=== PATIENT | male | born 1985 | race Caucasian/White ===

== ENCOUNTER 2024-06-20 09:17 | Emergency (ER) | payer OTHER, SELFPAY ==
[2024-06-20 09:25] VITALS: BP 148/89; PULSE 93; TEMP 36.7; O2SAT 98; BMI 33.1
--- NOTE | 2024-06-20 09:41 | PC.NURSE ---
PT STATES PYELONIDAL CYST HAS BEEN POPPING UP ON AND OFF FOR A FEW WEEKS. IT WOULD GO AWAY ON IT'S OWN AND THEN COME BACK. LAST FEW DAYS PAIN GETTING WORSE AND NOT GOING AWAY.
[2024-06-20] MEDS: KETOROLAC TROMETHAMINE 60 MG/2 ML VIAL IM (10:08)
[2024-06-20] MEDS: LIDOCAINE HCL 1% 100 MG/10 ML MDV INJ (10:58)
--- NOTE | 2024-06-20 11:37 | ED.SKABFB1 ---
HPI - Skin/Abscess/Foreign Bdy General Chief complaint: Skin/Abscess/Foreign Body Stated complaint: SKIN Time Seen by Provider: 06/20/24 09:44 Source: patient Mode of arrival: walk-in Limitations: no limitations History of Present Illness HPI narrative: Patient presented to us with a history of pilonidal cyst that was removed few years ago over the last 1 week the patient developed some pain in the area where he had the cyst before, he denies any fever chills or any nausea or vomiting with a normal appetite Related Data Previous Rx's ?Medication ?Instructions ?Recorded doxycycline hyclate 100 mg capsule 100 mg PO BID 7 days #14 caps 06/20/24 metronidazole 500 mg tablet 500 mg PO Q8H 7 days #21 tabs 06/20/24 Allergies Allergy/AdvReac Type Severity Reaction Status Date / Time amoxicillin Allergy Severe Hives Verified 06/20/24 09:24 Penicillins AdvReac Severe Hives Verified 06/20/24 09:24 Review of Systems ROS Status of ROS 10 or more systems reviewed and unremarkable except as noted in history and below PFSH PFSH Social History Little interest or pleasure in doing things: not at all Feeling down, depressed, or hopeless: not at all Exam Narrative Exam Narrative: Nurses notes and vital signs reviewed and patient is not hypoxic. Buttock area examination: The patient have a area of induration at the gluteal cleft with the scarring that is obvious from previous surgery there was no area of drainage and there is no redness with her there is induration of the skin, induration is around 2 to 3 cm oval in shape, there is a fluctuation just at the gluteal cleft General: Well-appearing and in no apparent distress. Skin: Warm, dry, no pallor noted. No rash. Head: Normocephalic, atraumatic. Neck: Supple, non-tender. Cardiovascular: Regular Rate and Rhythm without murmur, gallop or rub. Respiratory: No accessory muscle use or respiratory distress. Lungs are clear to auscultation, no wheezing, rales or rhonchi Chest Wall: no tenderness Back: No midline thoracic or lumbar vertebral tenderness. No CVA tenderness Musculoskeletal: normal ROM, no calf or popliteal tenderness, no lower extremity edema/swelling GI: Abdomen is soft, non-distended. Normal bowel sounds. No masses appreciated. No tenderness to palpation. No rebound, guarding, or rigidity noted. Neurological: A&O x4. No cranial nerve dysfunction observed. No truncal ataxia. Moves all extremities. Sensation intact. Psychiatric: Cooperative and interactive. Normal mood and affect. Constitutional Vital Signs, click to edit/add: Last Vital Signs Temp 98.1 F 06/20/24 09:25 Pulse 93 H 06/20/24 09:25 Resp 18 06/20/24 09:25 BP 148/89 H 06/20/24 09:25 Pulse Ox 98 06/20/24 09:25 O2 Del Method Room Air 06/20/24 09:25 Course Vital Signs Vital signs: Vital Signs Temperature 98.1 F 06/20/24 09:25 Pulse Rate 93 H 06/20/24 09:25 Respiratory Rate 18 06/20/24 09:25 Blood Pressure 148/89 H 06/20/24 09:25 Pulse Oximetry 98 06/20/24 09:25 Oxygen Delivery Method Room Air 06/20/24 09:25 Temperature 98.1 F 06/20/24 09:25 Pulse Rate 93 H 06/20/24 09:25 Respiratory Rate 18 06/20/24 09:25 Blood Pressure 148/89 H 06/20/24 09:25 Pulse Oximetry 98 06/20/24 09:25 Oxygen Delivery Method Room Air 06/20/24 09:25 MDM - Skin/Abscess/Foreign Bdy MDM Narrative Medical decision making narrative: Bedside drainage' After cleaning the area thoroughly with Betadine and infiltrated the area with 1% lidocaine. Almost 10 cc The patient had a large bore needle used to drain almost 20 cc of pus Small stab wound by 11 size blade with no further drainage noted after the pus was removed with a large bore needle Culture obtained and sent The patient was started on Flagyl and doxycycline discharged home with warm sitz bath instructed in addition to hydration monitoring for fever and pain and referred to general surgery as outpatient Discharge Plan Discharge Chief Complaint: Skin/Abscess/Foreign Body Clinical Impression: Pilonidal cyst with abscess Patient Disposition: Home, Self-Care Time of Disposition Decision: 10:47 Condition: Good Mode of Transportation: Private Vehicle Prescriptions / Home Meds: New doxycycline hyclate 100 mg capsule 100 mg PO BID 7 Days Qty: 14 0RF metronidazole 500 mg tablet 500 mg PO Q8H 7 Days Qty: 21 0RF Print Language: Gibraltarian Instructions: Pilonidal Cyst (ED), Abscess (ED), Sitz Bath (DC) Referrals: Howard Walker DO [Primary Care Provider] - 1 week Discharge Date/Time: 06/20/24 11:00
== END 2024-06-20 11:00 | disposition home or self-care (01) ==
PROVIDERS: Emergency Provider Emergency Medicine; PCP Internal Medicine
DX: L05.01 Pilonidal cyst with abscess (principal)
CPT/HCPCS: 10160; 87070; 87075; 87150; 96372; 99284; J1885

== ENCOUNTER 2024-06-21 18:15 | Emergency (ER) | payer OTHER, SELFPAY ==
[2024-06-21 18:18] VITALS: BP 168/94; PULSE 101; TEMP 37.3; O2SAT 96; BMI 33.1
--- NOTE | 2024-06-21 18:30 | CT_ITS ---
The [address] [address] Patient Name: JESÚS LEAHY MRN: [id number] date: 1985 Sex: M Assigned Patient Location: ER Current Patient Location: [facility] Accession/Order Number: [id number] Exam Date: 06/21/2024 19:08 Report Date: 06/21/2024 19:42 At the request of: ABBI MONGE Procedure: CT pelvis w con Exam: Radiographs: XR chest 1V, CT pelvis w con Reason for exam: Cough, fever Comparison: None CT/CT pelvis w con IMPRESSION: Unremarkable chest x-ray. EXAM: CT scan of the pelvis using 100 mL of IV iodinated contrast. Dose reduction technique used: Automated exposure control and/or adjustment of the mA and/or kV according to patient size and/or use of iterative reconstruction technique. REASON FOR EXAM: Cough, fever, abscess drained yesterday COMPARISON: None FINDINGS: Small fluid collection along the upper gluteal cleft subcutaneous fat to the right midline measuring approximately 3.4 x 2.2 x 3.6 cm with mild surrounding fat stranding and a small internal locules of gas. Small fat-containing left inguinal hernia. Mild urothelial thickening of a short segment of the distal right ureter. Right lower quadrant fistula communication between small bowel and colon. Mild wall thickening of the distal ileum. No free fluid in the pelvis. No intrapelvic fluid collection or abscess. Remainder unremarkable. IMPRESSION: 1. Small abscess in the subcutaneous fat along the upper gluteal cleft. 2. Probable sequela of Crohn's disease with fistula between small bowel and colon in the right lower quadrant and wall thickening of the distal ileum. 3. Short segment wall thickening of the distal right ureter may be reactive to the adjacent changes of prior inflammation. Electronically authenticated by: CONCEPCION TRENT Date: 06/21/2024 19:42
--- NOTE | 2024-06-21 18:41 | ED.GENADUL1 ---
HPI HPI - General Adult General Chief complaint: Upper Respiratory Infection Stated complaint: FEVER, CHILLS, HEAD & EYE PRESSURE, SOB Time Seen by Provider: 06/21/24 18:18 Source: patient Mode of arrival: walk-in Limitations: no limitations History of Present Illness HPI narrative: 38-year-old male presents for fever and head pressure and cough. The symptoms began within the last day. Several days ago he had a pilonidal abscess incised and drained but he states that his pilonidal area feels better. He was concerned that his fever was related to the pilonidal cyst and abscess. No vomiting or diarrhea. He checked his temperature at home and it was 101.5 degrees today at home. Related Data Previous Rx's ?Medication ?Instructions ?Recorded doxycycline hyclate 100 mg capsule 100 mg PO BID 7 days #14 caps 06/20/24 metronidazole 500 mg tablet 500 mg PO Q8H 7 days #21 tabs 06/20/24 Allergies Allergy/AdvReac Type Severity Reaction Status Date / Time amoxicillin Allergy Severe Hives Verified 06/20/24 09:24 Penicillins AdvReac Severe Hives Verified 06/20/24 09:24 Opioid HPI Opioid Management Most Recent Opioid Data: Last Pain Scale 9 06/20/24 10:08 06/20/24 Review of Systems ROS Narrative A ten point review of systems is negative except as noted above. PFSH PFSH Social History Little interest or pleasure in doing things: not at all Feeling down, depressed, or hopeless: not at all Exam Narrative Exam Narrative: Nurses note and vital signs reviewed and patient is not hypoxic. General: The patient appears in no apparent distress. Patient is resting comfortably on cart. Skin: Warm, dry, no pallor noted. There is no rash noted. Head: Normocephalic, atraumatic Eye: Normal conjunctiva, no drainage Ears, Nose, Mouth, and Throat: oral mucosa is moist. Nares patent. No pharyngeal erythema. TMs are normal. Cardiovascular: Regular Rate and Rhythm Respiratory: Patient is in no distress, no accessory muscle use, lungs are clear to auscultation, no wheezing, rales or rhonchi Back: Pilonidal area has swelling and tenderness and some mild fluctuance GI: Soft and nontender Musculoskeletal: The patient has no evidence of calf tenderness, no pitting edema, symmetrical pulses noted bilaterally Neurological: Awake and alert Psychiatric: Cooperative Constitutional Vital Signs, click to edit/add: Last Vital Signs Temp 99.2 F 06/21/24 18:18 Pulse 101 H 06/21/24 18:18 Resp 18 06/21/24 18:18 BP 168/94 H 06/21/24 18:18 Pulse Ox 96 06/21/24 18:18 O2 Del Method Room Air 06/21/24 18:18 Course Vital Signs Vital signs: Vital Signs Temperature 99.2 F 06/21/24 18:18 Pulse Rate 101 H 06/21/24 18:18 Respiratory Rate 18 06/21/24 18:18 Blood Pressure 168/94 H 06/21/24 18:18 Pulse Oximetry 96 06/21/24 18:18 Oxygen Delivery Method Room Air 06/21/24 18:18 Temperature 99.2 F 06/21/24 18:18 Pulse Rate 101 H 06/21/24 18:18 Respiratory Rate 18 06/21/24 18:18 Blood Pressure 168/94 H 06/21/24 18:18 Pulse Oximetry 96 06/21/24 18:18 Oxygen Delivery Method Room Air 06/21/24 18:18 Medical Decision Making MDM Narrative Medical decision making narrative: Tests are ordered and the patient is signed out to Dr. Pat at change of shift. Differential Diagnosis Differential Diagnosis: Viral URI, COVID, influenza, pneumonia Discharge Plan Discharge Patient Disposition: Still a Patient
[2024-06-21 19:02] LABS: Basophils Percent Auto 0.4 % (0.2-2.0); Hematocrit 44.2 % (42.0-54.0); Hemoglobin 14.6 g/dL (14.0-18.0); Immature Granulocytes Abs Auto 0.02 10^3/uL (0.00-0.03); Immature Granulocytes Pct Auto 0.4 % (0.0-0.5); Lymphocytes Absolute Auto 0.4 10^3/uL (1.2-3.8); Lymphocytes Percent Auto 7.2 % (20.5-60.0); Mean Corpuscular Hemoglobin 28.7 pg (25.9-34.0); Mean Platelet Volume 8.6 fL (9.5-13.5); Monocytes Absolute Auto 0.4 10^3/uL (0.3-0.8); Monocytes Percent Auto 7.9 % (1.7-12.0); Neutrophils Absolute Auto 4.6 10^3/uL (1.4-6.5); Neutrophils Percent Auto 84.1 % (43.0-75.0); Platelet Count 251 10^3/uL (150-450); Red Blood Count 5.08 10^6/uL (4.70-6.10); Red Cell Distribution Width 13.3 % (11.0-15.0); White Blood Count 5.5 10^3/uL (4.0-11.0)
[2024-06-21 19:15] LABS: Influenza Virus A Antigen Negative; Influenza Virus B Antigen Negative; Internal Control Within Normal Limits; SARS-CoV-2 Ag NEGATIVE (NEGATIVE)
[2024-06-21 19:16] LABS: Anion Gap 15.3; Calcium 8.5 mg/dL (8.5-10.1); Carbon Dioxide 26.5 mmol/L (21.0-32.0); Chloride 99 mmol/L (98-107); Estimated GFR (African America 51 (>=60 mL/min/1.73m^2); Estimated GFR (Non-African Ame 42 (>=60 mL/min/1.73m^2); Glucose 135 mg/dL (74-106); Potassium 3.8 mmol/L (3.5-5.1); Sodium 137 mmol/L (136-145)
[2024-06-21] MEDS: 0.9 % SODIUM CHLORIDE 1,000 ML 1000 ML IV (19:45)
[2024-06-21] MEDS: ACETAMINOPHEN 500 MG TABLET PO (19:58)
[2024-06-21] MEDS: KETOROLAC TROMETHAMINE 30 MG/ML VIAL 15 MG IVP (20:49)
[2024-06-21] MEDS: OXYCODONE HCL/ACETAMINOPHEN 5MG/325MG 1 TAB PO (21:25)
[2024-06-21 21:36] VITALS: BP 124/78; PULSE 88; O2SAT 95
== END 2024-06-21 21:39 | disposition home or self-care (01) ==
PROVIDERS: Emergency Medicine; Emergency Provider Student in an Organized Health Care Education/Training Program; PCP Internal Medicine
DX: J06.9 Acute upper respiratory infection, unspecified (principal); R94.4 Abnormal results of kidney function studies; L05.01 Pilonidal cyst with abscess; K63.2 Fistula of intestine
CPT/HCPCS: 36415; 71045; 72193; 80048; 85025; 87804; 87811; 96374; 99285; J1885; Q9967

== ENCOUNTER 2025-07-20 09:05 | Emergency (ER) | payer OTHER, SELFPAY ==
[2025-07-20 09:09] VITALS: BP 166/110; PULSE 88; TEMP 36.7; O2SAT 98; BMI 35.6
--- NOTE | 2025-07-20 09:19 | XR_ITS ---
The [address] [address] Patient Name: JESÚS LEAHY MRN: [id number] date: 1985 Sex: M Assigned Patient Location: ER Current Patient Location: ED.MAIN Accession/Order Number: [id number] Exam Date: 07/20/2025 09:28 Report Date: 07/20/2025 10:00 At the request of: ABBI MONGE MD Procedure: XR foot RT min 3V 3 views right foot foot plain film COMPARISON:None HISTORY: Right foot pain for 2 days. No injury ACUTE FINDINGS: None DEGENERATIVE CHANGE: Minimal spurring of the metatarsal phalangeal level superiorly. Minimal beaking involving the superior portion of the talar neck. SOFT TISSUE FINDINGS: Unremarkable JOINT EFFUSION: None POSTOP CHANGES: None BONE MINERALIZATION: Adequate XR/XR foot RT min 3V IMPRESSION: No acute bony findings. Minimal superior marginal spurring of the metatarsophalangeal joint. Talar beaking. 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 07/20/2025 10:00 AM Dictation Location: [place] [address] Electronically authenticated by: [id number] Y Date: 07/20/2025 10:00
--- NOTE | 2025-07-20 09:21 | ED_ITS ---
HPI HPI - General Adult General Chief complaint: Extremity Problem, Nontraumatic Stated complaint: LOWER EXTREMITY PAIN - RT FOOT Time Seen by Provider: 07/20/25 09:17 Source: patient Mode of arrival: walk-in Limitations: no limitations History of Present Illness HPI narrative: 39-year-old male presented to the emergency department for pain on the dorsum of his right foot. He has had it for 2 or 3 days and does not remember a specific injury. No pain in the ankle or the other foot. It hurts more if he pushes on it. Related Data Previous Rx's ?Medication ?Instructions ?Recorded doxycycline hyclate 100 mg capsule 100 mg PO BID 7 day s #14 caps 06/20/24 metronidazole 500 mg tablet 500 mg PO Q8H 7 days #21 t abs 06/20/24 oxycodone-acetaminophen 5 mg-325 1 tab PO Q8H PRN pain #12 tabs 06/21/24 mg tablet (Percocet) Allergies Allergy/AdvReac Type Severity Reaction Status Date / Time amoxicillin Allergy Severe Hives Verified 06/20/24 09:24 Penicillins AdvReac Severe Hives Verified 06/20/24 09:24 Opioid HPI Opioid Management Most Recent Opioid Data: Last Pain Scale 9 06/20/24, 10:08 Review of Systems ROS Narrative A ten point review of systems is negative except as noted above. PFSH PFSH Social History Little interest or pleasure in doing things: not at all Feeling down, depressed, or hopeless: not at all Exam Narrative Exam Narrative: Nurses note and vital signs reviewed General:The patient appears well and in no apparent distress. Patient is resting comfortably on cart. Skin:Warm, dry, no pallor noted.There is no rash noted. Head:Normocephalic, atraumatic Eye: Normal conjunctiva, no drainage Ears, Nose, Mouth, and Throat: oral mucosa is moist. Nares patent. Cardiovascular:Regular Rate and Rhythm Respiratory:Patient is in no distress, no accessory muscle use Back:non-tender, no CVA tenderness bilaterally to percussion. GI: Nontender Musculoskeletal: The right foot is examined. There is no bruise rash or abrasion. He has some tenderness on the dorsum of the foot. No swelling is noted. The ankle is nontender. Toes are nontender. Neurological:A&O, normal speech Psychiatric:Cooperative Constitutional Vital Signs, click to edit/add: Last Vital Signs Temp 98.1 F 07/20/25 09:09 Pulse 88 07/20/25 09:09 Resp 18 07/20/25 09:09 BP 166/110 H 07/20/25 09:09 Pulse Ox 98 07/20/25 09:09 O2 Del Method Room Air 07/20/25 09:09 Course Vital Signs Vital signs: Vital Signs Temperature 98.1 F 07/20/25 09:09 Pulse Rate 88 07/20/25 09:09 Respiratory Rate 18 07/20/25 09:09 Blood Pressure 166/110 H 07/20/25 09:09 Pulse Oximetry 98 07/20/25 09:09 Oxygen Delivery Method Room Air 07/20/25 09:09 Temperature 98.1 F 07/20/25 09:09 Pulse Rate 88 07/20/25 09:09 Respiratory Rate 18 07/20/25 09:09 Blood Pressure 166/110 H 07/20/25 09:09 Pulse Oximetry 98 07/20/25 09:09 Oxygen Delivery Method Room Air 07/20/25 09:09 Medical Decision Making MDM Narrative Medical decision making narrative: X-ray findings are discussed with the patient and he is referred to podiatry for follow-up. No acute findings present. Treatment diagnosis and follow-up were discussed with the patient. Differential Diagnosis Differential Diagnosis: Fracture, sprain Imaging Data X-ray foot: Radiologist's impression: ITS Impressions Foot X-Ray 07/20/25 09:19 IMPRESSION: No acute bony findings. Minimal superior marginal spurring of the metatarsophalangeal joint. Talar beaking. 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 07/20/2025 10:00 AM Dictation Location: [place] [address] Electronically authenticated by: [id number] Y Date: 07/20/2025 10:00 Discharge Plan Discharge Chief Complaint: Extremity Problem, Nontraumatic Clinical Impression: Foot pain, right Patient Disposition: Home, Self-Care Time of Disposition Decision: 10:26 Condition: Good Mode of Transportation: Private Vehicle Prescriptions / Home Meds: No Action oxycodone-acetaminophen [Percocet] 5-325 mg tablet 1 tab PO Q8H PRN (Reason: pain) Qty: 12 0RF doxycycline hyclate 100 mg capsule 100 mg PO BID 7 Days Qty: 14 0RF metronidazole 500 mg tablet 500 mg PO Q8H 7 Days Qty: 21 0RF Print Language: Macedonian Instructions: Arthralgia (ED) Referrals: Physician,Non-Staff, MD [Primary Care Provider] - 1 week Gurpreet Sosa DPM [Physician, Podiatry] - 1 week
--- OUTSIDE RECORDS SUMMARY | 2025-07-20 09:39 | XMS_ITS | Clinical Summary ---
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
--- OUTSIDE RECORDS SUMMARY | 2025-07-20 09:39 | XMS_ITS | Clinical Summary ---
Author Organization [facility] Address [address] [place] [address] Care Team Providers Care Chemistry Physics Teacher Name Role Phone Vernon Lyles MD Primary Care Provider + [phone] Nita Valle Unavailable Unavailable Ameya Lipscomb MD Unavailable [phone] Emily Parra Unavailable Unavailable Analisa Brian MD Unavailable [phone] Allergies Active AllergyReactionsCriticalityNoted CgevPllvmwtpWmsusiacahbIkfrHtd65/30/2017 GpoqbbdiwvnAljrNey74/27/2017 Medications MedicationSigDispense QuantityRefillsLast FilledStart DateEnd DateStatus busPIRone (BUSPAR) 10 mg tablet Take 10 mg by mouth in the morning and 10 mg before bedtime.4Active buPROPion XL (WELLBUTRIN XL) 150 mg tablet Take 150 mg by mouth in the morning.4Active dextroamphetamine-amphetamine (Adderall XR) 30 mg Capsule, Sust. Release 24 hr Indications:Attention deficit hyperactivity disorder (ADHD), predominantly inattentive typeTake 1 Capsule (30 mg) by mouth daily. 90 Capsule 5Active lisinopriL (ZESTRIL) 10 mg tablet Take 1 Tablet by mouth daily. 90 Tablet ctive escitalopram oxalate (LEXAPRO) 20 mg Tablet Take 20 mg by mouth daily.5Active Active Problems ProblemNoted DateDiagnosed DatePilonidal fizwmei8303/14/2020H/O Crohn's disease 12/24/2018 Overview (12/24/2018): on stelara Fibrous papule of cheek12/24/2018 Overview (12/24/2018): r cheek Iron deficiency anemia due to chronic blood loss08/07/2018Acute lower GI glrctock11/03/2019Gastroesophageal reflux disease without lecygqzqmpp45/01/2017 ADD (attention deficit disorder)09/17/2016 Assessment & Plan (06/22/2025 11:58 AM EST): Stable with current meds, due for annual wellness/controlled substance agreement and UDS yv-nw-lonzpenr Assessment & Plan (11/18/2024 10:37 AM EDT): Meds working well, refills given. UDS and CSA updated. Orders: ??? dextroamphetamine-amphetamine (Adderall XR) 30 mg Capsule, Sust. Release 24 hr; Take 1 Capsule (30 mg) by mouth daily. ??? POCT AMB DRUG SCREEN Crohn's xwxahpq6209/17/2016 Assessment & Plan (06/22/2025 11:58 AM EST): Stable with GI follow-up continue follow Assessment & Plan (11/18/2024 10:37 AM EDT): Follow-up with GI appropriately. Continue current meds, doing fairly well actually. Encounters DateTypeDepartmentCare DobwLetqgmcpchh54/02/2025 11:15 AM ESTOffice Visit [facility], [place] [address] [place] [address] Vernon Lyles MD BENJAMIN (obstructive sleep apnea) (Primary Dx); Crohn's disease with fistula, unspecified gastrointestinal tract location (CMS/HCC); Attention deficit hyperactivity disorder (ADHD), predominantly inattentive type; Class 2 obesity due to excess calories without serious comorbidity with body mass index (BMI) of 38.0 to 38.9 in adult06/13/2025 3:58 PM EST - 06/13/2025 6:42 PM ESTEmergency [facility] Emergency [facility] - [place] (Main) [address] [place], [place] [id number] Ihsan Braun, DO SOB (shortness of breath) (Primary Dx); Hypertension, unspecified type Discharge Disposition: Home or Self Care06/13/2025Travelfrom Last 3 Months Immunizations ImmunizationAdministration DatesNext QzvSiswh30-Bpzi-emt-3 Vaccine 12+YRS Old (PFIZER Purple)10/10/2020,1DTP05/02/1989,06/28/1988,03/20/1988, 01/02/1988DTaP04/10/1993Flu, Preservative&Egg Free, Trivalent Flucelvax (6mos-64yrs)05/27/2025Hep A/Hep B003/14/2007Hepatitis B003/02/2009HiB10/09/1989 INFLUENZA, RECOMBINANT, QUAD, PRESERVATIVE FREE (65YRS AND OVER)04/26/2022, 06/11/2021,03/24/2020,05/25/2019Influenza (intradermal)06/21/2017Influenza, Seasonal, Injectable, Preservative Free05/21/2016MMR1,05/02/1989OPV 04/10/1993,05/02/1989,03/20/1988,01/02/1988PPD Test11/28/20163694EJAS-Zoa-6 Vaccine Red Top 12+yrs Old (MODERNA)02/01/2022,06/13/2021Tdap11/18/2024,05/18/2015, 07/22/2012,03/02/2009meningococcal hdqmoczpp60/24/2007 Family History Medical HistoryRelationNameCommentsHeart ProblemsMaternal GrandfatherHeart ProblemsMaternal UncleAnesthesia ComplicationsNeg HxRelationNameStatusComments Maternal GrandfatherMaternal Uncle Social History Tobacco UseTypesPacks/DayYears UsedDateSmoking Tobacco: Some DaysCigarsSmokeless Tobacco: Never Tobacco Cessation:Ready to Q uit: Not Asked; Counseling Given: Not Answered Alcohol UseStandard Drinks/WeekCommentsYes0 (1 standard drink = 0.6 oz pure alcohol)occasPHQ-2AnswerDate RecordedPHQ-9 Auto Qurks592Sex and Gender InformationValueDate RecordedSex Assigned at JpyooBtqj39/05/2020 2:50 PM EST Legal GfpGxuq3308/06/2016 10:16 AM ESTGender RnboqxaiNquh14/05/2020 2:50 PM EST Sexual UhhrepposwuUwxompbj50/05/2020 2:50 PM EST Last Filed Vital Signs Vital SignReadingTime TakenCommentsBlood Dwokvwux953/80108/23/2024 11:01 AM EST Pqcmb679706/22/2025 11:01 AM PMJRbgbuqxuqjv35.6 ??C (96 ??F)06/22/2025 11:01 AM ESTRespiratory Avfi413008/23/2024 11:01 AM ESTOxygen Qvpnesupft30%06/22/2025 11:01 AM ESTInhaled Oxygen Concentration--Xwrjij866.4 kg (303 lb)06/22/2025 11:01 AM PUOYwopur782.5 cm (6' 3 )06/22/2025 11:01 AM ESTBody Mass Index37.8706/22/2025 11:01 AM EST Plan of Treatment DateTypeDepartmentCare Team (Latest Contact Info)Xfdzrgmctuh19/18/2026 10:40 AM ESTAppointment [facility] - [facility] Medicine, [address] Medical Office Building [address] [place] [phone] Gurvinder Freeman MD [address] [place] [address]. [address] [place] [address] Health MaintenanceDue DateLast DoneCommentsTobacco Cessation Counseling 1999HPV Vaccine (1 - 3-dose SCDM series)11/16/2014COVID-19 Vaccine ( season)507/, 06/13/2021, 10/10/2020, Additional history existsLipid Pfoxlggut23, 10/13/2019, 10/24/2016Tetanus Vaccination (Every 10 Years)5011/18/2024, 05/18/2015, 07/22/2012, Additional history existsDepression JdotmrykcHbqvvlwfd14/30/2025, 09/08/2019, 03/09/2019, Additional history existsInfluenza Vaccination (Yearly)Discontinued 05/27/2025, 04/26/2022, 06/11/2021, Additional history existsInfluenza OcnpekobfkkYepcncncw76/06/2025, 04/26/2022, 06/11/2021, Additional history existsBMI MyuwrjdjsqWknbmhuqs02/02/2025, 11/18/2024 Procedures Procedure NamePriorityDate/TimeAssociated DiagnosisCommentsDIAG-PORTABLE CHEST STAT108/13/2024 4:53 PM EST POC HS TROPONIN I QZABNEufptkj71/23/2025 4:50 PM EST POC JYKZOSetsvyz70/23/2025 4:43 PM EST POC AGZ5Oalfkfh47/23/2025 4:43 PM EST POC AZRRSAYJNybulad03/23/2025 4:43 PM EST POC LRJKQKOHTPHrztgdq55/23/2025 4:43 PM EST POC KXBJgdsvdu54/23/2025 4:43 PM EST POC IONIZED LMMLAQCTbmfdob74/23/2025 4:43 PM EST POC BCHQGUXMmymwiy57/23/2025 4:43 PM EST POC LAVATKMCBHhqudsc10/23/2025 4:43 PM EST POC AGROZULgyvzfo33/23/2025 4:43 PM EST POC CZSPLKzagknp41/23/2025 4:39 PM EST POC RLV8Tpqceqa05/23/2025 4:39 PM EST POC NWNMLIXTMzkttjg81/23/2025 4:39 PM EST POC PSJBVUNWVGKqqvihd35/23/2025 4:39 PM EST POC KTLOgfytms29/23/2025 4:39 PM EST POC IONIZED MCHNJTUQyabgpo70/23/2025 4:39 PM EST POC YHMIOYVCkpocut67/23/2025 4:39 PM EST POC JFESNAUNXQlreejb13/23/2025 4:39 PM EST POC KXPHDHMbqmitk54/23/2025 4:39 PM EST POC XLHOMDFEZFGgrshft33/23/2025 4:37 PM EST OKOAKGXZLJWYLCIS17/23/2025 4:28 PM EST TSH (THYROID STIMULATING HORMONE)06/13/2025 4:28 PM EST HGB, A1C (GLYCOHEMOGLOBIN)STAT108/13/2024 4:28 PM EST LIVER VVVZHFJXGLW20/23/2025 4:28 PM EST CBC WITH OFUYTEYGWTDMBWLD02/23/2025 4:28 PM EST B NATRIURETIC HFTMFMHFECO80/23/2025 4:28 PM EST JGWWIGK1306/13/2025 3:01 PM EST LIPID CIWZUGBVwpdpyb92/03/2023 3:41 PM EDT Screening, lipid from Last 3 Months or Most Recently Relevant to Health Maintenance Results * DIAG-PORTABLE CHEST (06/13/2025 4:53 PM EST)Anatomical RegionLaterality ModalityChestRadiographic ImagingSpecimen (Source)Anatomical Location / LateralityCollection Method / VolumeCollection TimeReceived Time06/13/2025 5:04 PM EST Impressions 06/13/2025 5:05 PM EST IMPRESSION: No acute pulmonary disease. Signed By: Fernando Herrera MD Narrative 06/13/2025 5:05 PM EST EXAM: PORTABLE AP CHEST X-RAY INDICATION: sob COMPARISON: none FINDINGS: There is no focal consolidation, pleural effusion, or pneumothorax. The cardiomediastinal silhouette is normal. The visible bony thorax is intact. Procedure Note Fernando Herrera MD - 06/13/2025 EXAM: PORTABLE AP CHEST X-RAY INDICATION: sob COMPARISON: none FINDINGS: There is no focal consolidation, pleural effusion, or pneumothorax. The cardiomediastinal silhouette is normal. The visible bony thorax isintact. IMPRESSION: No acute pulmonary disease. Signed By: Fernando Herrera MD Authorizing ProviderResult TypeResult StatusIhsan Braun [facility] DIAGNOSTIC IMAGING ORDERABLESFinal Result * POC HS TROPONIN I ISTAT (06/13/2025 4:50 PM EST)ComponentValueRef RangeTest MethodAnalysis TimePerformed AtPathologist SignaturePOC HS Troponin I ISTAT <4.00.0 - 35.0 ng/LTCH EXTERNAL LABSpecimen (Source)Anatomical Location / LateralityCollection Method / VolumeCollection TimeReceived TimeBlood, Venous 06/13/2025 4:50 PM EST06/13/2025 4:53 PM EST Narrative Authorizing ProviderResult TypeResult Radha Braun DOPOINT OF CARE TEST ORDERABLESFinal ResultPerforming OrganizationAddressCity/State/ZIP Code Phone Number [facility] [address] * (ABNORMAL) POC TCO2 (06/13/2025 4:43 PM EST) Only the most recent of2 resultswithin the time period is included. ComponentValueRef RangeTest MethodAnalysis TimePerformed AtPathologist Signature POC DHE292(L)25 - 29 mmol/LTCH EXTERNAL LABSpecimen (Source)Anatomical Location / LateralityCollection Method / VolumeCollection TimeReceived TimeBlood, Venous 06/13/2025 4:43 PM EST06/13/2025 4:45 PM EST Narrative Authorizing ProviderResult TypeResult StatusIhsan Braun [facility] SSDOINT OF CARE TEST ORDERABLESFinal ResultPerforming OrganizationAddressCity/State/ZIP Code Phone Number [facility] [address] * POC SODIUM (06/13/2025 4:43 PM EST) Only the most recent of2 resultswithin the time period is included. ComponentValueRef RangeTest MethodAnalysis TimePerformed AtPathologist Signature POC Qrgygk515241 - 146 mmol/LTCH EXTERNAL LABSpecimen (Source)Anatomical Location / LateralityCollection Method / VolumeCollection TimeReceived Time Blood, Ihttlj8306/13/2025 4:43 PM EST06/13/2025 4:45 PM EST Narrative Authorizing ProviderResult TypeResult StatusIhsan Braun DOPOINT OF CARE TEST ORDERABLESFinal ResultPerforming OrganizationAddressCity/State/ZIP Code Phone Number [facility] [address] * POC POTASSIUM (06/13/2025 4:43 PM EST) Only the most recent of2 resultswithin the time period is included. ComponentValueRef RangeTest MethodAnalysis TimePerformed AtPathologist Signature POC Potassium3.83.5 - 5.1 mmol/LTCH EXTERNAL LABSpecimen (Source)Anatomical Location / LateralityCollection Method / VolumeCollection TimeReceived Time Blood, Ziclwp6306/13/2025 4:43 PM EST06/13/2025 4:45 PM EST Narrative Authorizing ProviderResult TypeResult StatusIhsan Braun DOPOINT OF CARE TEST ORDERABLESFinal ResultPerforming OrganizationAddressty/State/ZIP Code Phone Number [facility] [address] * POC IONIZED CALCIUM (06/13/2025 4:43 PM EST) Only the most recent of2 resultswithin the time period is included. ComponentValueRef RangeTest MethodAnalysis TimePerformed AtPathologist Signature POC Ionized Calcium4.54.5 - 5.3 mg/dLTCH EXTERNAL LABSpecimen (Source)Anatomical Location / LateralityCollection Method / VolumeCollection TimeReceived Time Blood, Ldjnoy7306/13/2025 4:43 PM EST06/13/2025 4:45 PM EST Narrative Authorizing ProviderResult TypeResult StatusIhsan Braun DOPOINT OF CARE TEST ORDERABLESFinal ResultPerforming OrganizationAddressCity/State/ZIP Code Phone Number [facility] [address] * POC ANION (06/13/2025 4:43 PM EST) Only the most recent of2 resultswithin the time period is included. ComponentValueRef RangeTest MethodAnalysis TimePerformed AtPathologist Signature POC Anion Out1341 - 20 mmol/LTCH EXTERNAL LABComment:Anion gap calculation includes potassium (K+) value.Specimen (Source)Anatomical Location / Laterality Collection Method / VolumeCollection TimeReceived TimeBlood, Batwog3006/13/2025 4:43 PM EST06/13/2025 4:45 PM EST Narrative Authorizing ProviderResult TypeResult StatusIhsan Braun [facility] SSDOINT OF CARE TEST ORDERABLESFinal ResultPerforming OrganizationAddressty/State/[facility] Code Phone Number [facility] [address] * POC CREATININE (06/13/2025 4:43 PM EST) Only the most recent of2 resultswithin the time period is included. ComponentValueRef RangeTest MethodAnalysis TimePerformed AtPathologist Signature POC Creatinine1.20.5 - 1.3 mg/dLTCH EXTERNAL LABSpecimen (Source)Anatomical Location / LateralityCollection Method / VolumeCollection TimeReceived Time Blood, Sissuu1106/13/2025 4:43 PM EST06/13/2025 4:45 PM EST Narrative Authorizing ProviderResult TypeResult StatusIhsan Braun DOPOINT OF CARE TEST ORDERABLESFinal ResultPerforming OrganizationAddressty/State/ZIP Code Phone Number [facility] [address] * POC CHLORIDE (06/13/2025 4:43 PM EST) Only the most recent of2 resultswithin the time period is included. ComponentValueRef RangeTest MethodAnalysis TimePerformed AtPathologist Signature POC Nbgliovc30069 - 110 mmol/LTCH EXTERNAL LABSpecimen (Source)Anatomical Location / LateralityCollection Method / VolumeCollection TimeReceived Time Blood, Taeomn9806/13/2025 4:43 PM EST06/13/2025 4:45 PM EST Narrative Authorizing ProviderResult TypeResult StatusIhsan Braun DOPOINT OF CARE TEST ORDERABLESFinal ResultPerforming OrganizationAddressty/State/ZIP Code Phone Number [facility] [address] * POC BUN (06/13/2025 4:43 PM EST) Only the most recent of2 resultswithin the time period is included. ComponentValueRef RangeTest MethodAnalysis TimePerformed AtPathologist Signature POC DJZ277 - 25 mg/dLTCH EXTERNAL LABSpecimen (Source)Anatomical Location / LateralityCollection Method / VolumeCollection TimeReceived TimeBlood, Venous 06/13/2025 4:43 PM EST06/13/2025 4:45 PM EST Narrative Authorizing ProviderResult TypeResult StatusIhsan Braun [facility] TEST ORDERABLESFinal ResultPerforming OrganizationAddressty/State/ZIP Code Phone Number [facility] [address] * (ABNORMAL) POC GLUCOSE (06/13/2025 4:43 PM EST) Only the most recent of2 resultswithin the time period is included. ComponentValueRef RangeTest MethodAnalysis TimePerformed AtPathologist Signature POC Nqdyfef296(H)71 - 99 mg/dLTCH EXTERNAL LABSpecimen (Source)Anatomical Location / LateralityCollection Method / VolumeCollection TimeReceived Time Blood, Qfysko2406/13/2025 4:43 PM EST06/13/2025 4:45 PM EST Narrative Authorizing ProviderResult TypeResult StatusIhsan Braun DOPOINT OF CARE TEST ORDERABLESFinal ResultPerforming OrganizationAddressty/State/ZIP Code Phone Number [facility] [address] [place] [address], [place] * (ABNORMAL) POC URINALYSIS (06/13/2025 4:37 PM EST)ComponentValueRef RangeTest MethodAnalysis TimePerformed AtPathologist SignatureLeukocyte esterase UA NegativeNegativeTCH EXTERNAL LABBlood, UANegativeNegativeTCH EXTERNAL LAB Urobilinogen, UA0.20.2 - 1.0 EU/dLTCH EXTERNAL LABProtein, UA30(A)Negative mg/dLTCH EXTERNAL LABNitrite, UANegativeNegativeTCH EXTERNAL LABBilirubin, UA NegativeNegativeTCH EXTERNAL LABGlucose, UANegativeNegative mg/dLTCH EXTERNAL LABKetones, UANegativeNegative mg/dLTCH EXTERNAL LABpH, Urine7.05.0 - 8.0TCH EXTERNAL LABSpec Grav, UA1.0151.005 - 1.035TCH EXTERNAL LABSpecimen (Source) Anatomical Location / LateralityCollection Method / VolumeCollection Time Received CejxQhivg88/23/2025 4:37 PM EST06/13/2025 4:39 PM EST Narrative Authorizing ProviderResult TypeResult StatusAnthmarco Braun [facility] SSDOINT OF CARE TEST ORDERABLESFinal ResultPerforming OrganizationAddressCity/State/ZIP Code Phone Number [facility] [address] * (ABNORMAL) DIFFERENTIAL (06/13/2025 4:28 PM EST)ComponentValueRef RangeTest MethodAnalysis TimePerformed AtPathologist SignatureNeutrophils Absolute3.38 1.50 - 7.80 10*3/uLTCH EXTERNAL LABLymphocytes Absolute0.72(L)0.80 - 3.90 10*3/uLTCH EXTERNAL LABMonocytes Absolute0.560.20 - 0.90 10*3/uLTCH EXTERNAL LABEosinophils Absolute0.330.00 - 0.50 10*3/uLTCH EXTERNAL LABBasophils Absolute0.030.00 - 0.20 10*3/uLTCH EXTERNAL LABImmature Granulocytes Absolute 0.010.00 - 0.10 10*3/uLTCH EXTERNAL LABNeutrophils Rogzxhny25.2%TC EXTERNAL LABLymphocytes Yaabccpn33.3%TCH EXTERNAL LABMonocytes Visecvfh76.1%TCH EXTERNAL LABEosinophils Relative6.6%TCH EXTERNAL LABBasophils Relative0.6%TCH EXTERNAL LABImmature Granulocytes0.2%TCH EXTERNAL TLGhCLL84 - 0 /100 WBCTCH EXTERNAL LABSpecimen (Source)Anatomical Location / LateralityCollection Method / VolumeCollection TimeReceived TimeWhole Blood06/13/2025 4:28 PM EST 06/13/2025 4:49 PM EST Narrative Authorizing ProviderResult TypeResult StatusAnthmarco Braun DOHEMATOLOGY ORDERABLESFinal ResultPerforming OrganizationAddressCity/State/ZIP CodePhone Number [facility] [address] * CBC WITH DIFFERENTIAL (06/13/2025 4:28 PM EST)ComponentValueRef RangeTest MethodAnalysis TimePerformed AtPathologist SignatureWBC5.034.00 - 12.00 10*3/uLTCH EXTERNAL LABRBC5.344.20 - 5.80 10*6/uLTCH EXTERNAL LABHemoglobin 16.113.2 - 17.1 g/dLTCH EXTERNAL LABHematocrit Blood48.940.0 - 51.0 %TCH EXTERNAL ZXFLEO91.680.0 - 100.0 fLTCH EXTERNAL DHHWMU74.127.0 - 33.0 pgTCH EXTERNAL VCTFSTU01.930.0 - 36.0 g/dLTCH EXTERNAL WGFJEY77.811.0 - 15.0 %TCH EXTERNAL XLYYrphzdjpd475111 - 400 10*3/uLTCH EXTERNAL LABMPV9.39.0 - 13.0 fL TCH EXTERNAL LABSpecimen (Source)Anatomical Location / LateralityCollection Method / VolumeCollection TimeReceived TimeWhole Blood06/13/2025 4:28 PM EST 06/13/2025 4:49 PM EST Narrative Authorizing ProviderResult TypeResult StatusIhsan Braun DOHEMATOLOGY ORDERABLESFinal ResultPerforming OrganizationAddressCity/State/ZIP CodePhone Number [facility] [address] * TSH (THYROID STIMULATING HORMONE) (06/13/2025 4:28 PM EST)ComponentValueRef RangeTest MethodAnalysis TimePerformed AtPathologist SignatureTSH1.140.35 - 4.94 uIU/mLTCH EXTERNAL LABSpecimen (Source)Anatomical Location / Laterality Collection Method / VolumeCollection TimeReceived XaczHkztri96/23/2025 4:28 PM EST06/13/2025 4:49 PM EST Narrative Authorizing ProviderResult TypeResult StatusAnthmarco Braun DOCHEMISTRY ORDERABLESFinal ResultPerforming OrganizationAddressty/State/ZIP CodePhone Number [facility] [address] * (ABNORMAL) LIVER PROFILE (06/13/2025 4:28 PM EST)ComponentValueRef RangeTest MethodAnalysis TimePerformed AtPathologist SignatureTotal Bilirubin0.50.2 - 1.2 mg/dLTCH EXTERNAL LABBilirubin, Direct0.10.0 - 0.5 mg/dLTCH EXTERNAL LAB AST54(H)0 - 40 U/LTCH EXTERNAL QFAMXT10(H)0 - 60 U/LTCH EXTERNAL LABAlkaline Uaewccxpfrr3344 - 140 U/LTCH EXTERNAL LABTotal Protein7.56.0 - 8.0 g/dLTCH EXTERNAL LABAlbumin4.23.5 - 5.0 g/dLTCH EXTERNAL LABGlobulin3.32.0 - 3.7 g/dL [facility] EXTERNAL LABAlbumin/Globulin Ratio1.31.0 - 2.1TCH EXTERNAL LABSpecimen (Source)Anatomical Location / LateralityCollection Method / VolumeCollection TimeReceived QebwNvwxga88/23/2025 4:28 PM EST06/13/2025 4:49 PM EST Narrative Authorizing ProviderResult TypeResult StatusAnthmarco Braun DOCHEMISTRY ORDERABLESFinal ResultPerforming OrganizationAddressty/State/ZIP CodePhone Number [facility] [address] * HGB, A1C (GLYCOHEMOGLOBIN) (06/13/2025 4:28 PM EST)ComponentValueRef RangeTest MethodAnalysis TimePerformed AtPathologist SignatureHgb A1C5.64.0 - 5.6 %[facility] EXTERNAL LABComment: Reference Ranges for Hgb A1c: Increased risk for diabetes: ??5.7-6.4% Probable diabetes: >=6.5% Desired control for previously diagnosed diabetics: <7.0% Many conditions can affect the Hgb A1c value including hemolysis, recent transfusion, hemoglobin variants, thalassemias, severe chronic hepatic and renal disease and iron deficiency among others. ??Please note that results from this assay are invalid for patients with abnormal amounts of Hemoglobin (HbF). ??Resultsmust be interpreted in the proper clinical context. ??This method is certified by the National Glycohemoglobin Standardization program (NGSP) and traceable to DCCT. Estimated Average Dlfnbeo27768 - 114 mg/dLTCH EXTERNAL LABSpecimen (Source) Anatomical Location / LateralityCollection Method / VolumeCollection Time Received TimeWhole Blood06/13/2025 4:28 PM EST06/13/2025 4:49 PM EST Narrative Authorizing ProviderResult TypeResult StatusAnthmarco Braun DOCHEMISTRY ORDERABLESFinal ResultPerforming OrganizationAddressty/State/ZIP CodePhone Number [facility] [address] * B NATRIURETIC PEPTIDE (06/13/2025 4:28 PM EST)ComponentValueRef RangeTest MethodAnalysis TimePerformed AtPathologist LalrpmmxpOOQ701 - 100 pg/mLTCH EXTERNAL LABSpecimen (Source)Anatomical Location / LateralityCollection Method / VolumeCollection TimeReceived VgztWxtaln50/23/2025 4:28 PM EST06/13/2025 4:49 PM EST Narrative Authorizing ProviderResult TypeResult StatusAnthmarco Braun DOCHEMISTRY ORDERABLESFinal ResultPerforming OrganizationAddS[facility]/State/[facility] CodePhone Number [facility] [address] * ECG (06/13/2025 3:01 PM EST)ComponentValueRef RangeTest MethodAnalysis Time Performed AtPathologist SignatureHeart Idkg91yliFFB EXTERNAL LABQRS Interval 112msTCH EXTERNAL LABQT Dramvytb882xhYFY EXTERNAL LABQTc Wemhpihv038shFDZ EXTERNAL LABP Dpus70kjqXVP EXTERNAL LABQRS Qxzk04twqJWS EXTERNAL LABT Wave Fzyh87qpuMAC EXTERNAL LABP-R Bdtgmuzd676tugsHIE EXTERNAL LABSpecimen (Source) Anatomical Location / LateralityCollection Method / VolumeCollection Time Received Time06/13/2025 3:01 PM EST Narrative T[facility] EXTERNAL LAB - 06/16/2025 7:45 AM EST [facility] ? Test Date: ?2025-06-13 15:01:14 Pat Name: ? JEÚSS BENAVIDES ? Department: ?? ED ? Room: ? Gender: ? Male ? Power Wood Sawyer: ?? Ajd5 : ?1985 ? Requested By: TCHIP AUTOMATICALLY ORDERED Order Number: [id number] ?Reading MD: ?? Sergio Tenorio MD ? Interpretive Statements Sinus rhythm Borderline intraventricular conduction delay Electronically Signed On 06-16-2025 07:44:57 EST by Sergio Tenorio MD Procedure Note Sergio Tenorio MD - 06/16/2025 [facility] Test Date: 2025-06-13 15:01:14 Pat Name: JESÚS BENAVIDES Department: ED Room: Gender: Male Power Wood Sawyer: Ajd5 : 1985 Requested By: MONIQUE AUTOMATICALLY ORDERED Order Number: [id number] Reading MD: Sergio Tenorio MD Interpretive Statements Sinus rhythm Borderline intraventricular conduction delay Electronically Signed On 06-16-2025 07:44:57 EST by Sergio Tenorio MD Authorizing ProviderResult TypeResult StatusTchip Ordered AutomaticallyECG ORDERABLESFinal ResultPerforming OrganizationAddressCity/State/ZIP CodePhone Number [facility] [address] * (ABNORMAL) LIPID PROFILE (01/21/2023 3:41 PM EDT)ComponentValueRef RangeTest MethodAnalysis TimePerformed AtPathologist XhllicvysEhqodaewjqd487838 - 199 mg/dLTCH EXTERNAL LABComment: TOTAL CHOLESTEROL INTERPRETATION: Less than 200 mg/dL Desireable 200-239 mg/dL Borderline Greater or Equal to 240 mg/dL High LDL Djxuraqiqg795(H)0 - 100 mg/dLTCH EXTERNAL LABComment: LDL CHOLESTEROL INTERPRETATION: ?? Less than 100 mg/dL Optimal 100-129 mg/dL Near optimal/above optimal 130-159 mg/dL Borderline High 160-189 mg/dL High Greater or Equal to 190 mg/dL Very High HDL36(L)40 - 180 mg/dLTCH EXTERNAL LABComment: HDL CHOLESTEROL INTERPRETATION: ?? Less than 40 mg/dL Low Greater than 60 mg/dL Desirable Mecwokitprhaf206 - 149 mg/dLTCH EXTERNAL LABComment: TOTAL TRIGLYCERIDE INTERPRETATION: ?? Less than 150 mg/dL Normal 150-199 mg/dL Borderline HIgh 200-499 mg/dL High Greater or Equal to 500 mg/dL Very High NONHDL Blcrojjndj9960 - 129 mg/dLTCH EXTERNAL LABComment: NON-HDL INTERPRETATION: Less than 130 mg/dL Desirable 130-159 mg/dL Above Desirable 160-189 mg/dL Borderline High 190-219 mg/dL High Greater than or equal to 220 mg/dL Very High Specimen (Source)Anatomical Location / LateralityCollection Method / Volume Collection TimeReceived TimeSerum (Serum)01/21/2023 3:41 PM EDT01/21/2023 8:04 PM EDT Narrative Authorizing ProviderResult TypeResult StatusVernon Lyles MDCHEMISTRY ORDERABLESFinal ResultPerforming OrganizationAddressCity/State/ZIP CodePhone Number [facility] [address] [place] [address], [facility] from Last 3 Months or Most Recently Relevant to Health Maintenance Advance Directives For more information, please contact: [phone] * Full Code (Latest Code Status on File) Date ActivatedDate InactivatedComments07/25/2018 12:42 AM03/14/2020 10:24 AM Care Teams Team MemberRelationshipSpecialtyStart DateEnd Date Vernon Lyles MD [address] [facility] [place] [address] PCP - GeneralFamily Medicine09/17/16 Nita Valle 10/25/20 Ameya Lipscomb MD [address] [facility] [address] [place] [address] Gastroenterology11/16/20 Emily Parra 11/16/20 Analisa Brian MD [address] [facility] [address] - [place] [id number] Colon and Rectal Surgery07/29/22
--- OUTSIDE RECORDS SUMMARY | 2025-07-20 09:39 | XMS_ITS | Clinical Summary ---
Author Organization [facility] Address [address] [place] [address] Care Team Providers Care Drafting Layout Man Name Role Phone Vernon Lyles MD Primary Care Provider + Source Comments This information has been disclosed to you from confidential records protectedfrom disclosure by state law. You shall make no further disclosure of thisinformation without the specific, written, and informed release of theindividual to whom it pertains, or as otherwise permitted by law. A generalauthorization for the release of medical or other information is not sufficientfor the purposes of therelease of HIV test results or diagnoses. [id number] Allergies Active AllergyReactionsCriticalityNoted SwkuDxgsqwrdNwpheoopbigLfohAit34/04/2019 AthkmvlfvekWykpTgn32/04/2019 Medications MedicationSigDispense QuantityRefillsLast FilledStart DateEnd DateStatus ustekinumab (STELARA SUBQ) Inject subcutaneously.Active dextroamphetamine-amphetamine (ADDERALL XR) 30 MG 24 hr capsule Take 30 mg by mouth. M-FActive Active Problems ProblemNoted DateDiagnosed DatePilonidal sinus with clqxqdm1502/09/2020 Social History Tobacco UseTypesPacks/DayYears UsedDateSmoking Tobacco: NeverSmokeless Tobacco: NeverAlcohol UseStandard Drinks/WeekCommentsYes0 (1 standard drink = 0.6 oz pure alcohol)Sex and Gender InformationValueDate RecordedSex Assigned at BirthNot on fileLegal WlhOxoj6707/25/2018 12:57 PM ESTGender IdentityNot on fileSexual OrientationNot on file Last Filed Vital Signs Vital SignReadingTime TakenCommentsBlood Lwtledna677/80107/24/2019 9:09 AM EST Rwtzo9987 9:09 AM DWQKdtrjsbumcw59.9 ??C (98.4 ??F)05/24/2020 9:09 AM ESTRespiratory Fgkv755007/27/2018 11:33 AM ESTOxygen Mriiyipsbs60%05/24/2020 9:09 AM ESTInhaled Oxygen Nivkqtpjaodew79%05/24/2020 9:09 AM HRNDlnhxq984.5 kg (259 lb)05/24/2020 9:09 AM RYHInkdqj382.5 cm (6' 3 )05/24/2020 9:09 AM ESTBody Mass Index32.37107/24/2019 9:09 AM EST Plan of Treatment Not on file Insurance * Guarantor: Micah Benavides TypeRelation to PatientDate of BirthPhone Billing AddressPersonal/DqhrwqJxlr25/28/1986 [address] [facility] [place] [address] Care Teams Team MemberRelationshipSpecialtyStart DateEnd Vernon Lyles MD [address] [place], [place] [id number] PCP - GeneralFamily Medicine02/09/20
--- OUTSIDE RECORDS SUMMARY | 2025-07-20 09:42 | XMS_ITS | CCD ---
Author Organization [facility] Care Team Providers Care Sales Mgr Name Role Phone Domi Lyles MD Primary Care Provider [phone] Nita Valle Unavailable Unavailable Ameya Lipscomb MD Unavailable Emily Parra Unavailable Unavailable Roc GOLD, Analisa Liu Unavailable [phone] AUREA, DOMI M. Primary Care Unavailable AUREA, DOMI MBree Attending Unavailable AUREA, DOMI M. Primary Care Unavailable ANALISA BRIAN Attending Unavailable AUREA, DOMI M. Primary Care Unavailable PULSKAMPEDWARDA E. Attending Unavailable AUREA, DOMI M. Referring Unavailable AUREA, DOMI M. Primary Care Unavailable PULSKAMP, ADA E. Attending Unavailable ROC ANALISA FBree Referring Unavailable AUREA, DOMI M. Primary Care Unavailable PULSKAMP, ADA E. Attending Unavailable AUREA, DOMI M. Referring Unavailable AUREA, DOMI M. Referring Unavailable AUREA, DOMI M. Primary Care Unavailable AUREA, DOMI M. Primary Care Unavailable ANALISA BRIAN FBree Referring Unavailable AUREA, DOMI M. Primary Care Unavailable AUREA, DOMI M. Referring Unavailable AUREA, DOMI M. Primary Care Unavailable WALE POLLOCK Referring Unavailable AUREA, DOMI M. Primary Care Unavailable ARTUR LOPEZ Referring Unavailable AUREA, DOMI M. Primary Care Unavailable AUREA, DOMI M. Attending Unavailable AUREA, DOMI M. Primary Care Unavailable PULSKAMP, ADA E. Attending Unavailable AUREA, DOMI M. Primary Care Unavailable PULSKAMP, ADA E. Attending Unavailable AUREA, DOMI M. Referring Unavailable DOMI LYLES Primary Care Unavailable ADA MONTEIRO Attending Unavailable ANALISA BRIAN Referring Unavailable DOMI LYLES Primary Care Unavailable ADA MONTEIRO Attending Unavailable DOMI LYLES Primary Care Unavailable ADA MONTEIRO Attending Unavailable ANALISA BRIAN Referring Unavailable DOMI LYLES Referring Unavailable DOMI LYLES Primary Care Unavailable ANALISA BRIAN Attending Unavailable Allergies Allergy ClassificationReported Allergen(s)Allergy TypeDate of OnsetReaction(s) Facility (6 sources)Amoxicillin; Translations: [AMOXICILLIN]Drug Pzbrvkj82-85-8400YrdoW[facility] (5 sources)Penicillins; Translations: [PENICILLINS]Propensity to adverse reactions to aqkm61-79-6882[facility]qwlS[facility] (1 source)PenicillinsPropensity to adverse reactions to qztr91-96-0653BmhxPadCity Hospital Medications Current Medications MedicationDrug Class(es)DatesSig (Normalized)Sig (Original)24 hr amphetamine aspartate 7.5 mg / amphetamine sulfate 7.5 mg / dextroamphetamine saccharate 7.5 mg / dextroamphetamine sulfate 7.5 mg extended release oral capsule (9 sources)Central Nervous System StimulantStart: 08-20-2024 End: 52-98-5549xsic 1 capsule by mouth once dailydextroamphetamine-amphetamine (Adderall XR) 30 mg Capsule, Sust. Release 24 hr Indications: Attention deficit disorder, unspecified hyperactivity presence Take 1 Capsule (30 mg) by mouth daily. 30 Capsule 08/20/2024 09/19/2024 ActiveStart: 88-24-0257jqcv 1 capsule by mouth once dailydextroamphetamine-amphetamine (Adderall XR) 30 mg Capsule, Sust. Release 24 hr Indications: Attention deficit disorder, unspecified hyperactivity presence Take 1 Capsule (30 mg) by mouth daily. 30 Capsule 07/20/2024 ActiveStart: 92-01-3241jcgx 1 capsule by mouth once daily dextroamphetamine-amphetamine (Adderall XR) 30 mg Capsule, Sust. Release 24 hr Indications: Attention deficit disorder, unspecified hyperactivity presence Take 1 Capsule (30 mg) by mouth daily. 30 Capsule 05/21/2024 Activetake 1 tablet by mouth once dailydextroamphetamine-amphetamine (AdderalL) 30 mg Tablet Take 30 mg by mouth daily. Srivph09 hr buPROPion hydrochloride 150 mg extended release oral tablet (5 sources)AminoketoneStart: 91-14-7960ekcu 1 tablet by mouth once daily buPROPion XL (WELLBUTRIN XL) 150 mg tablet Take 150 mg by mouth daily. 02/23/2024 ActivebusPIRone hydrochloride 10 mg oral tablet (5 sources)Start: 68-40-2592wtgs 1 tablet by mouth twice dailybusPIRone (BUSPAR) 10 mg tablet Take 10 mg by mouth 2 times daily. 03/25/2024 ActiveDoxycycline (5 sources)Tetracycline-class DrugDOXYCYCLINE HYCLATE PO Take by mouth. Active ferrous sulfate 325 mg delayed release oral tablet (5 sources)Start: 81-56-1659djqfkqa sulfate 325 mg (65 mg iron) EC tablet Take by mouth as needed. 12/05/2013 ActivepredniSONE 10 mg oral tablet (10 sources)Start: 28-26-7670hycnoeAJTZ (DELTASONE) 10 mg tablet Take this medication for 10 days. Take 5 tablets daily for 2 days Take 4 tablets daily for 2 days Take 3 tablets daily for 2 days Take 2 tablets daily for 2 days Take 1 tablets daily for 2 days Then stop. 30 Tablet 03/04/2023 ActiveStart: 02-12-2023 take 4 tablets by mouth once daily, then take 3 tablets by mouth once daily, then take 2 tablets bymouth once daily, then take 1 tablet by mouth once daily predniSONE (DELTASONE) 10 mg tablet 4 tab po qd x 3d, 3 tabs po qd x 3d, 2 tabs po qd x 3d, 1 tab po qd x 3d 30 Tablet 02/12/2023 Activesaccharomyces boulardii 250 mg oral capsule (5 sources)take 1 capsule by mouth twice dailySaccharomyces boulardii (FLORASTOR) 250 mg Capsule Take 250 mg by mouth 2 times daily. Active1 ml ustekinumab 90 mg/ml prefilled syringe (5 sources)Interleukin-12 Antagonist, Interleukin-23 AntagonistStart: 04-02-2018 inject 90 mg by subcutaneous injection onceUstekinumab (STELARA) 90 mg/mL Syringe 90 mg by Subcutaneous route once for 1 dose. 1 mL 04/02/20184135Ywzoqr62 hr venlafaxine 37.5 mg extended release oral capsule (5 sources)Serotonin and Norepinephrine Reuptake InhibitorStart: 13-12-0242dupg 1 capsule by mouth once daily, then take 2 capsules by mouth once daily venlafaxine (EFFEXOR-XR) 37.5 mg Capsule, Sust. Release 24 hr TAKE 1 CAPSULE BY MOUTH DAILY FOR 1 WEEK THEN INCREASE TO 2 CAPSULES BY MOUTH DAILY 02/17/2024 Active Completed/Discontinued Medications MedicationDrug Class(es)DatesSig (Normalized)Sig (Original)gadobutroL (Gadavist) 10 mmol/10 mL (1 mmol/mL) injection 11 mL (1 source)Start: 08-18-2024 End: mL, Intravenous, ONCE IN IMAGING, 1 dose, Starting on Sat08/18/24 at 0940, Until Sat08/18/24 at 9078eiopjann-zsrtespk-djkmojv gum (Breeza) liquid for imaging 1,500 mL (1 source)Start: 08-18-2024 End: 06-24-2842xott 1 dose by mouth once1,500 mL, Oral, ONCE IN IMAGING, 1 dose, Starting on Sat08/18/24 at 1113, Until Sat08/18/24 at 0930 Problems Active Problems Problem ClassificationProblemDateDocumented DateEpisodic/ChronicAttention- deficit, conduct, and disruptive behavior disorders (1 source)Attention-deficit hyperactivity disorder, predominantly inattentive type; Translations: [Attention-deficit hyperactivity disorder, predominantly inattentive type]Onset: 54-71-6025YutxiulWxocwcufmd associated with dizziness or vertigo (2 sources)Dizziness and giddiness; Translations: [Dizziness and giddiness] Onset: 19-06-5949AwjctnrvPjftbtzsdp and other anemia (5 sources)Iron deficiency anemia due to blood loss; Translations: [Iron deficiency anemia secondary to blood loss (chronic)]Onset: ChronicDisorders usually diagnosed in infancy, childhood, or adolescence (6 sources)Attention deficit hyperactivity disorder, predominantly inattentive type; Translations: [Other specified behavioral and emotional disorders with onset usually occurring in childhood and adolescence]Onset: ChronicEsophageal disorders (5 sources)Gastroesophageal reflux disease without esophagitis; Translations: [Gastro-esophageal reflux disease without esophagitis]Onset: 06-21-2017 31-64-6978FmaxpnpDdwighzefnpah and screening for infectious disease (1 source)Encounter for immunization; Translations: [Encounter for immunization] Onset: 34-60-4185PjuejqqdOdwsotgv enteritis and ulcerative colitis (13 sources)Crohn's disease; Translations: [Crohn's disease, unspecified, without complications]Onset: [id number]rpk (1 source)Crohn's disease, unspecified, with fistulaOnset: 09-17-2016 Unclassified (1 source)Encounter for immunizationOnset: 96-47-1991Tzqjzkefbjwe (1 source)Crohn's disease, unspecified, with unspecified complicationsOnset: 97-99-4783Erftfzw tract infections (1 source)Urinary tract infectionsOnset: 07-02-2024 Past or Other Problems Problem ClassificationProblemDateDocumented DateEpisodic/ChronicGastrointestinal hemorrhage (5 sources)Acute lower gastrointestinal hemorrhage; Translations: [Gastrointestinal hemorrhage, unspecified]Onset: 888666-20-3017Kvyhohfe Mood disorders (5 sources)Mood disordersOnset: Other and unspecified benign neoplasm (5 sources)Fibrous papule of face; Translations: [Other benign neoplasm of skin of other parts of face]Onset: 840825-20-9297RqvyoaldOrkqh gastrointestinal disorders (5 sources)History of Crohns disease; Translations: [Personal history of other diseases of the digestive system]Onset: 591670-85-1532UjtrimezQcrt and subcutaneous tissue infections (7 sources)Pilonidal cyst with abscess; Translations: [Pilonidal cyst with abscess]Onset: 257387-58-6988LrybamelFitopvl tract infections (2 sources)Urinary tract infectious disease; Translations: [Urinary tract infection, site not specified]Onset: 570502-45-2721Edpvqark Results Test NameValueInterpretationReference RangeFacilityCBC (COMPLETE BLOOD COUNT)on 10-74-3236Eeiamcvzgvm distribution width (RBC) [Ratio]13.7 %11.0 - 15.0 %[facility] HospitalHematocrit (Bld) [Volume fraction]49.7 %40.0 - 51.0 %[facility] CenterHemoglobin (Bld) [Mass/Vol]16.2 g/dL13.2 - 17.1 g/dLBarnesville Hospital MCH (RBC) [Entitic mass]29.5 pg27.0 - 33.0 pgBarnesville HospitalMCHC (RBC) [Mass/Vol]32.6 g/dL30.0 - 36.0 g/dLBarnesville HospitalMCV (RBC) [Entitic vol] 90.5 fL80.0 - 100.0 fLTPremier Health Atrium Medical CenterPlatelet mean volume (Bld) [Entitic vol]9.2 fL9.0 - 13.0 fLTPremier Health Atrium Medical CenterPlatelets (Bld) [#/Vol]258 10*3/uL140 - 400 10*3/uLBarnesville HospitalRBC (Bld) [#/Vol]5.49 10*6/uL4.20 - 5.80 10*6/uL [facility] HospitalWBC (Bld) [#/Vol]4.87 10*3/uL4.00 - 12.00 10*3/uLJackson Medical CenterErythrocyte distribution width (RBC) [Ratio]13.7 % Jrlwyh73.0-15.0The [facility] CenterComment on above:Performed By: #### CBC ####[facility] EXTERNAL LAB (TCHXLAB)[address] [place] [id number] 1Hematocrit (Bld) [Volume fraction]49.7 %Yszarq49.0-51.0The [facility] CenterComment on above:Performed By: #### CBC ####[facility] (T[facility])[address] [place], [place] 1Hemoglobin (Bld) [Mass/Vol]16.2 g/eXLcptcy89.2-17.1 The [facility] CenterComselect specialty hospital on above:Performed By: #### CBC ####[facility] (T[facility]XLAB)[address] [place] [id number] 1MCH (RBC) [Entitic mass]29.5 pg Gzawwp29.0-33.0The [facility] CenterComment on above:Performed By: #### CBC ####[facility] EXTERNAL LAB (TCHXLAB)[address] [place] [address] 1MCV (RBC) [Entitic vol]90.5 uSXzmumr60.0-100.0The [facility] HospitalComment on above: Performed By: #### CBC ####[facility] EXTERNAL LAB (TCHXLAB)[address] [place] [address] 1MEAN CORPUSCULAR HEMOGLOBIN CONC32.6 g/dLNormal 30.0-36.0The [facility] CenterComment on above:Performed By: #### CBC ####[facility] EXTERNAL LAB (TCHXLAB)[address] [place] [address] 1Platelet mean volume (Bld) [Entitic vol]9.2 fLNormal9.0-13.0[facility] HospitalComment on above:Performed By: #### CBC ####[facility] EXTERNAL LAB (TCHXLAB)[address] [place] [address] 1Platelets (Bld) [#/Vol]258 10*3/fABlcdos665-411Uxq [facility] HospitalComment on above:Performed By: #### CBC ####[facility] EXTERNAL LAB (TCHXLAB)[address] [place] [address] 1RBC (Bld) [#/Vol]5.49 10*6/uL Normal4.20-5.80The [facility] CenterComment on above:Performed By: #### CBC ####[facility] EXTERNAL LAB (TCHXLAB)[address] [place] [address] 1WBC (Bld) [#/Vol]4.87 10*3/uLNormal4.00-12.00The [facility] CenterComment on above:Performed By: #### CBC ####[facility] EXTERNAL LAB (TCHXLAB)[address] [place] [address] 1COMPREHENSIVE METABOLIC PANELon 99-54-7271Smkjpnd Ql (U)4.2 g/dL3.5 - 5.0 g/dLBarnesville HospitalAlbumin/Globulin [Mass ratio]1.3 {ratio}1.0 - 2.1The [facility] CenterALP [Catalytic activity/Vol]68 U/L33 - 140 U/LTPremier Health Atrium Medical Center ALT [Catalytic activity/Vol]31 U/L0 - 60 U/LTPremier Health Atrium Medical CenterAnion gap [Moles/Vol]11 mmol/L5 - 13 mmol/LTPremier Health Atrium Medical CenterComment on above:Anion gap calculation does not include potassium (K+) value.AST [Catalytic activity/Vol]26 U/L0 - 40 U/LTPremier Health Atrium Medical CenterBilirubin [Mass/Vol]0.4 mg/dL0.2 - 1.2 mg/dLBarnesville HospitalCalcium [Mass/Vol]8.8 mg/dL8.5 - 10.5 mg/dLBarnesville Hospital Chloride [Moles/Vol]106 mmol/L98 - 110 mmol/LTPremier Health Atrium Medical CenterCO2 [Moles/Vol] 24 mmol/L22 - 29 mmol/LTPremier Health Atrium Medical CenterCreatinine [Mass/Vol]1.19 mg/dL0.50 - 1.30 mg/dLBarnesville HospitaleGFR CKD-EPI 921725Dkq NoteThe [facility] Comment on above:eGFR calculated with 2020 CKD-EPI equation using creatinine, patient's age and gender. Other factors, especially muscle mass, may affect accuracy and need to be considered. Patient values should be interpreted as a trend. The reference interval is >60 mL/min/1.73m2. Globulin (S) [Mass/Vol]3.3 g/dL2.0 - 3.7 g/dLBarnesville HospitalGlucose post fast [Mass/Vol]75 mg/dL71 - 99 mg/dLBarnesville HospitalComment on above: Reference range (71-99 mg/dL) refers only to fasting samples, and does not apply to non-fasting samples.Potassium [Moles/Vol]4.2 mmol/L3.5 - 5.1 mmol/LTPremier Health Atrium Medical CenterProtein (U) [Mass/Vol]7.5 g/dL6.0 - 8.0 g/dLBarnesville Hospital Sodium [Moles/Vol]141 mmol/L135 - 146 mmol/LThe Jan HospitalUrea nitrogen [Mass/Vol]14 mg/dL7 - 25 mg/dLBarnesville HospitalUrea nitrogen/Creatinine [Mass ratio]12 mg/mgBlanchard Valley Health System HospitalA/G RATIO1.4Gqrgpa1.0-2.1The [facility] CenterComment on above:Performed By: #### METAPNL ####[facility] EXTERNAL [facility] (TCHXLAB)[address] [place] [address] 1Albumin [Mass/Vol]4.2 g/dL Normal3.5-5.0The [facility] CenterComment on above:Performed By: #### METAPNL ####[facility] (TCHXLAB)[address] [place] [address] 1ALP [Catalytic activity/Vol]68 U/VXmjgxz77-404Rrm [facility] CenterComselect specialty hospital on above: Performed By: #### METAPNL ####[facility] (TCHXLAB)[address] [place] [address] 1ALT [Catalytic activity/Vol]31 U/LNormal0-60The [facility] CenterComment on above:Performed By: #### METAPNL ####[facility] (TCHXLAB)[address] [place] [address] 1Anion gap [Moles/Vol]11 mmol/L Normal5-13The [facility] CenterComselect specialty hospital on above:Result Comment: Anion gap calculation does not include potassium (K+) value.Performed By: #### METAPNL ####[facility] (TCHXLAB)[address] [place] [address] 1AST [Catalytic activity/Vol]26 U/LNormal0-40The [facility] CenterComselect specialty hospital on above: Performed By: #### METAPNL ####[facility] (TCHXLAB)[address] [place] [address] 1Bilirubin [Mass/Vol]0.4 mg/dLNormal0.2-1.2The [facility] CenterComment on above:Performed By: #### METAPNL ####[facility] (TCHXLAB)[address] [place] [address] 1BUN / CREAT EHTXR98PsqmtnWcf [facility] HospitalComment on above:Performed By: #### METAPNL ####[facility] (TCXLAB)[address] [place] [address] 1Calcium [Mass/Vol]8.8 mg/dL Normal8.5-10.5The [facility] HospitalComment on above:Performed By: #### METAPNL ####[facility] (TCXLAB)[address] [place] [address] 1Chloride [Moles/Vol]106 mmol/YZoznnj79-035Kvp [facility] HospitalComment on above:Performed By: #### METAPNL ####[facility] (TCXLAB)[address] [place] [address] 1CO2 [Moles/Vol]24 mmol/ZSglaao69-88Ivd [facility] HospitalComment on above: Performed By: #### METAPNL ####[facility] (TCXLAB)[address] [place] [address] 1Creatinine [Mass/Vol]1.19 mg/dLNormal0.50-1.30The [facility] HospitalComment on above:Performed By: #### METAPNL ####[facility] (TCXLAB)[address] [place] [address] 1EGFR CKD-EPI 647553 See Note NormalThe [facility] HospitalComment on above:Result Comment: eGFR calculated with 2020 CKD-EPI equation using creatinine, patient's age and gender. Other factors, especially muscle mass, may affect accuracy and need to be considered. Patient values should be interpreted as a trend. The reference interval is >60 mL/min/1.73m2.Performed By: #### METAPNL ####[facility] (TCXLAB)[address] [place] [address] 1Globulin (S) [Mass/Vol]3.3 g/dLNormal2.0-3.7The [facility] HospitalComment on above:Performed By: #### METAPNL ####[facility] EX[facility] (TCXLAB)[address] [place] [address] 1Glucose [Mass/Vol]75 mg/eNYktnfm15-24Xme [facility] CenterComment on above:Result Comment: Reference range (71-99 mg/dL) refers only to fasting samples, and does not apply tonon-fasting samples.Performed By: #### METAPNL ####[facility] (TCXLAB)[address] [place] [address] 1Potassium [Moles/Vol]4.2 mmol/LNormal3.5-5.1The [facility] HospitalComment on above:Performed By: #### METAPNL ####[facility] EX[facility] (TCXLAB)[address] [place] [address] 1Protein [Mass/Vol]7.5 g/dLNormal6.0-8.0The [facility] CenterComment on above:Performed By: #### METAPNL ####[facility] (TCXLAB)[address] [place] [address] 1Sodium [Moles/Vol]141 mmol/L Msghpq863-190Eur [facility] CenterComment on above:Performed By: #### METAPNL ####[facility] (TCXLAB)[address] [place] [address] 1Urea nitrogen [Mass/Vol]14 mg/dLNormal7-25The [facility] CenterComment on above: Performed By: #### METAPNL ####[facility] (TCHXLAB)[address] [place] [address] 1C-REACTIVE PROTEIN (CRP)on 00-88-9315HMT [Mass/Vol] 2.8 mg/L0.0 - 5.0 mg/LThe [facility] HospitalComment on above:This test will also detect relatively small elevations of CRP that are associated with increased car diovascular risk. Risk according to AHA/CDC Guidelines: <1.0 mg/L Lower relative risk of cardiovascular event 1.0-3.0 mg/L Average relative risk of cardiovascular event >3.0 mg/L Higher relative risk of cardiovascular event Persistently elevated values (>10.0mg/L) should be evaluated for non- cardiovascular inflammatoryetiologies. The [facility] CenterCOMPREHENSIVE METABOLIC PANELon 04-49-8681Ivdyowp Ql (U)4.1 g/dL3.5 - 5.0 g/dLBarnesville HospitalAlbumin/Globulin [Mass ratio]1.1 {ratio}1.0 - 2.1The [facility] CenterALP [Catalytic activity/Vol]68 U/L33 - 140 U/LThe [facility] CenterALT [Catalytic activity/Vol]31 U/L0 - 60 U/LThe [facility] CenterAnion gap [Moles/Vol]9 mmol/L5 - 13 mmol/LTPremier Health Atrium Medical CenterComment on above:Anion gap calculation does not include potassium (K+) value.AST [Catalytic activity/Vol]23 U/L0 - 40 U/LThe [facility] CenterBilirubin [Mass/Vol]0.4 mg/dL0.2 - 1.2 mg/dLThe [facility] CenterCalcium [Mass/Vol]8.9 mg/dL8.5 - 10.5 mg/dLBarnesville Hospital Chloride [Moles/Vol]105 mmol/L98 - 110 mmol/LTPremier Health Atrium Medical CenterCO2 [Moles/Vol] 24 mmol/L22 - 29 mmol/LTPremier Health Atrium Medical CenterCreatinine [Mass/Vol]1.1 mg/dL0.50 - 1.30 mg/dLBarnesville HospitaleGFR CKD-EPI 709787Gqf NoteThe [facility] Comment on above:eGFR calculated with 2020 CKD-EPI equation using creatinine, patient's age and gender. Other factors, especially muscle mass, may affect accuracy and need to be considered. Patient values should be interpreted as a trend. The reference interval is >60 mL/min/1.73m2. Globulin (S) [Mass/Vol]3.7 g/dL2.0 - 3.7 g/dLThe [facility] CenterGlucose post fast [Mass/Vol]83 mg/dL71 - 99 mg/dLThe [facility] CenterComment on above: Reference range (71-99 mg/dL) refers only to fasting samples, and does not apply to non-fasting samples.Potassium [Moles/Vol]4.1 mmol/L3.5 - 5.1 mmol/LTPremier Health Atrium Medical CenterProtein (U) [Mass/Vol]7.8 g/dL6.0 - 8.0 g/dLThe [facility] Sodium [Moles/Vol]138 mmol/L135 - 146 mmol/LThe [facility] CenterUrea nitrogen [Mass/Vol]15 mg/dL7 - 25 mg/dLThe [facility] CenterUrea nitrogen/Creatinine [Mass ratio]14 mg/mgBarnesville HospitalFERRITINon 26-46-1810Xlawtrsq [Mass/Vol]31 ng/mL20 - 250 ng/mLBarnesville HospitalFOLIC ACIDon 27-39-2540Uulpcl4.7 ng/mLLow 7.0 - 31.4 ng/mLThe [facility] CenterComment on above:Folate deficiency is typically associated with serum levels less than 3.5 ng/mL. Values between 3.5 and 7.0 ng/mL are considered borderline. Occasionally, the diagnosis of folate deficiency cannot be based solely on serum levels and further testing may be considered. Interpretation and review of laboratory resultsAbThe Hospitals of Providence Sierra CampusHEPATITIS B SURFACE AGon 49-42-7062TTU surface Ag Ql (S) Non-ReactiveNonreactiveThe [facility] CenterComselect specialty hospital on above:HBs Antigen not detected.The [facility] STUDIES (FE + TIBC + SAT)on 09-11-2024 Interpretation and review of laboratory resultsAbJoint Township District Memorial HospitalIron [Mass/Vol]69 ug/dL65 - 175 ug/dLBarnesville HospitalTIBC376 ug/dL250 - 450 ug/dL The [facility] CenterTransferrin %18 %Low20 - 50 %The [facility] CenterNo Panel Informationon 12-34-8571GywJackson Medical CenterVITAMIN B12 (CYANOCOBALAMIN)on 60-12-6059Kyttotyla (Vitamin B12) [Mass/Vol]322 pg/mL213 - 816 pg/mLBarnesville HospitalComselect specialty hospital on above:Please note that B12 levels above 300 or 400 are rarely associated with B12 deficiency induced hematological or neurological disease, respectively. Further testing is suggested for symptomatic patients with B12 levels between 100 and 300 pg/mL (hematological abnormalities), and between 100 and 400 pg/mL (neurological abnormalities). VITAMIN D 25 HYDROXY TOTALon 94-78-8552Uqgynlpdqrxjjn and review of laboratory resultsAbJoint Township District Memorial HospitalVit D, 25-Bmzeimn75 ng/mLLow30 - 80 ng/mLBarnesville HospitalComselect specialty hospital on above:Therapy is based on measurement of Total 25-OHD, with levels <20 ng/mL indicative of Vitamin D deficiency, while levels between 20 ng/mL and 30 ng/mL suggest insufficiency. Sufficient levels are >or = 30 ng/mL. C-REACTIVE PROTEIN (CRP)on 00-93-6600DMP [Mass/Vol]2.8 mg/LNormal0.0-5.0Barn[facility]ville HospitalComment on above:Result Comment: This test will also detect relatively small elevations of CRP that are associated with increased cardiovascular risk. Risk according to AHA/CDC Guidelines: <1.0 mg/L\X09\Lower relative risk of cardiovascular event 1.0-3.0 mg/L\X09\Average relative risk of cardiovascular event >3.0 mg/L\X09\Higher relative risk of cardiovascular event Persistently elevated values (>10.0mg/L) should be evaluated for non- cardiovascular inflammatoryetiologies.Performed By: #### CRP ####[facility] EXTERNAL LAB (TCXLAB)[address] [place] [address] 1CBC WITH DIFFERENTIALon 62-68-4069Aujqepfsusx distribution width (RBC) [Ratio]13.7 %11.0 - 15.0 %[facility] HospitalHematocrit (Bld) [Volume fraction]49.8 %40.0 - 51.0 %The [facility] Medical CenterHemoglobin (Bld) [Mass/Vol]16.2 g/dL13.2 - 17.1 g/dLBarnesville Hospital Interpretation and review of laboratory resultsAbnoSt. Charles HospitalH (RBC) [Entitic mass]28.5 pg27.0 - 33.0 pgMadison HealthHC (RBC) [Mass/Vol]32.5 g/dL30.0 - 36.0 g/dLMadison HealthV (RBC) [Entitic vol] 87.7 fL80.0 - 100.0 fLTPremier Health Atrium Medical CenterPlatelet mean volume (Bld) [Entitic vol]8.9 fLLow9.0 - 13.0 fLTPremier Health Atrium Medical CenterPlatelets (Bld) [#/Vol]322 10*3/uL 140 - 400 10*3/uLBarnesville HospitalRBC (Bld) [#/Vol]5.68 10*6/uL4.20 - 5.80 10*6/uLBarnesville HospitalWBC (Bld) [#/Vol]5.7 10*3/uL4.00 - 12.00 10*3/[facility] HospitalErythrocyte distribution width (RBC) [Ratio]13.7 %Scrubb46.0-15.0 The [facility] CenterComment on above:Performed By: #### CBCD ####[facility] EXTERNAL LAB (TCXLAB)[address] [place] [address] 1Hematocrit (Bld) [Volume fraction]49.8 %Ikanlv96.0-51.0[facility] Center HospitalComment on above:Performed By: #### CBCD ####[facility] EXTERNAL LAB (TCXLAB)[address] [place] [address] 1 Hemoglobin (Bld) [Mass/Vol]16.2 g/vIUqwrih20.2-17.1The [facility] CenterComment on above:Performed By: #### CBCD ####[facility] EXTERNAL LAB (TCHXLAB)[address] [place] [address] 1MCH (RBC) [Entitic mass]28.5 roOcoxxx11.0-33.0[facility] HospitalComment on above:Performed By: #### CBCD ####[facility] EXTERNAL LAB (TCXLAB)[address] [place] [address] 1MCV (RBC) [Entitic vol]87.7 fL Ysefxx21.0-100.0The [facility] CenterComment on above:Performed By: #### CBCD ####[facility] EXTERNAL LAB (TCHXLAB)[address] [place] [address] 1MEAN CORPUSCULAR HEMOGLOBIN CONC32.5 g/bNGhvvxy34.0-36.0The [facility] CenterComment on above:Performed By: #### CBCD ####[facility] EXTERNAL LAB (TCHXLAB)[address] [place] [address] 1Platelet mean volume (Bld) [Entitic vol]8.9 fLLow 9.0-13.0[facility] HospitalComment on above:Performed By: #### CBCD ####TC EXTERNAL LAB (TCHXLAB)[address] [place] [address] 1Platelets (Bld) [#/Vol]322 10*3/pOPtzcgk362-066Ltt [facility] HospitalComment on above:Performed By: #### CBCD ####[facility] EXTERNAL LAB (TCHXLAB)[address] [place] [address] 1RBC (Bld) [#/Vol]5.68 10*6/uLNormal4.20-5.80[facility] HospitalComment on above:Performed By: #### CBCD ####[facility] EXTERNAL LAB (TCHXLAB)[address] [place] [address] 1WBC (Bld) [#/Vol]5.70 10*3/uLNormal4.00-12.00[facility] HospitalComment on above:Performed By: #### CBCD ####[facility] EXTERNAL LAB (TCHXLAB)[address] [place] [address] 1COMPREHENSIVE METABOLIC PANELon 5A/G RATIO1.0Diahmw5.0-2.1The [facility] CenterComment on above: Performed By: #### METAPNL ####TC EXTERNAL LAB (TCHXLAB)[address] [place] [address] 1Albumin [Mass/Vol]4.1 g/dLNormal3.5-5.0The [facility] CenterComment on above:Performed By: #### METAPNL ####TC EXTERNAL LAB (TCHXLAB)[address] [place] [address] 1ALP [Catalytic activity/Vol]68 U/HSkeajy02-168Aey [facility] HospitalComment on above:Performed By: #### METAPNL ####TC EXTERNAL LAB (TCHXLAB)[address] [place] [address] 1ALT [Catalytic activity/Vol]31 U/LNormal0-60[facility] HospitalComment on above: Performed By: #### METAPNL ####TC EXTERNAL LAB (TCHXLAB)[address] [place] [address] 1Anion gap [Moles/Vol]9 mmol/LNormal5-13The [facility] CenterComment on above:Result Comment: Anion gap calculation does not include potassium (K+) value.Performed By: #### METAPNL ####TC EXTERNAL LAB (TCXLAB)[address] [place] [address] 1AST [Catalytic activity/Vol]23 U/LNormal0-40The [facility] CenterComment on above:Performed By: #### METAPNL ####TC EXTERNAL LAB (TCHXLAB)[address] [place] [address] 1Bilirubin [Mass/Vol]0.4 mg/dLNormal0.2-1.2The [facility] CenterComment on above:Performed By: #### METAPNL ####TC EXTERNAL LAB (TCXLAB)[address] [place] [address] 1BUN / CREAT FDQKF96UfdwdzEyf [facility] CenterComment on above:Performed By: #### METAPNL ####TC EXTERNAL LAB (TCXLAB)[address] [place] [address] 1Calcium [Mass/Vol]8.9 mg/dLNormal8.5-10.5The [facility] CenterComment on above:Performed By: #### METAPNL ####TC EXTERNAL LAB (TCXLAB)[address] [place] [address] 1Chloride [Moles/Vol]105 mmol/VJzngrk39-266Rtx [facility] HospitalComment on above:Performed By: #### METAPNL ####[facility] EXTERNAL LAB (TCXLAB)[address] [place] [address] 1CO2 [Moles/Vol]24 mmol/LNormal 22-29The [facility] CenterComment on above:Performed By: #### METAPNL ####TC EXTERNAL LAB (TCHXLAB)[address] [place] [address] 1Creatinine [Mass/Vol]1.10 mg/dLNormal0.50-1.30The [facility] CenterComment on above:Performed By: #### METAPNL ####TC EXTERNAL LAB (TCHXLAB)[address] [place] [address] 1EGFR CKD-EPI 129255 See NoteNormWestern Reserve Hospital on above: Result Comment: eGFR calculated with 2020 CKD-EPI equation using creatinine, patient's age and gender. Other factors, especially muscle mass, may affect accuracy and need to be considered. Patient values should be interpreted as a trend. The reference interval is >60 mL/min/1.73m2.Performed By: #### METAPNL ####TC EXTERNAL LAB (TCHXLAB)[address] [place] [address] 1Globulin (S) [Mass/Vol]3.7 g/dLNormal2.0-3.7The [facility] on above:Performed By: #### METAPNL ####TC EXTERNAL LAB (TCHXLAB)[address] [place] [address] 1Glucose [Mass/Vol]83 mg/cWLsbdzd10-24Vep [facility] on above:Result Comment: Reference range (71-99 mg/dL) refers only to fasting samples, and does not apply tonon-fasting samples.Performed By: #### METAPNL ####TC EXTERNAL LAB (TCHXLAB)[address] [place] [address] 1Potassium [Moles/Vol]4.1 mmol/LNormal3.5-5.1The [facility] CenterComment on above:Performed By: #### METAPNL ####TC EXTERNAL LAB (TCHXLAB)[address] [place] [address] 1Protein [Mass/Vol]7.8 g/dLNormal6.0-8.0The [facility] Rehabilitationment on above:Performed By: #### METAPNL ####TC EXTERNAL LAB (TCHXLAB)[address] [place] [address] 1Sodium [Moles/Vol]138 mmol/L Lkzjhg239-984Pal [facility] for Rehabilitationment on above:Performed By: #### METAPNL ####TC EXTERNAL LAB (TCHXLAB)[address] [place] [address] 1Urea nitrogen [Mass/Vol]15 mg/dLNormal7-25The [facility] CenterComment on above: Performed By: #### METAPNL ####TC EXTERNAL LAB (TCHXLAB)[address] [place] [address] 1DIFFERENTIALon 36-29-9818Jxbjprpva (Bld) [#/Vol]0.05 10*3/uL0.00 - 0.20 10*3/uLSelect [facility] HospitalBasophils/100 WBC (Bld)0.9 %[facility] HospitalEosinophils (Bld) [#/Vol]0.29 10*3/uL0.00 - 0.50 10*3/uLSelect [facility] Specialty Hospital [facility] HospitalEosinophils/100 WBC (Bld)5.1 %The [facility] CenterImmature granulocytes (Bld) [#/Vol]0.02 10*3/uL0.00 - 0.10 10*3/uLBarnesville Hospital Immature granulocytes/100 WBC (Bld)0.4 %0.0 - 2.0 %[facility] Lymphocytes (Bld) [#/Vol]0.86 10*3/uL0.80 - 3.90 10*3/[facility] Lymphocytes/100 WBC (Bld)15.1 %[facility] CenterMonocytes (Bld) [#/Vol]0.82 10*3/uL0.20 - 0.90 10*3/uLBarnesville HospitalMonocytes/100 WBC (Bld)14.4 %[facility] CenterNeutrophils Absolute3.66 10*3/uL1.50 - 7.80 10*3/uLBarnesville HospitalNeutrophils/100 WBC (Bld)64.1 %The [facility] CenterZrhhvehscFZS2AeeBarnesville HospitalBASOPHILS ABSOLUTE COUNT0.05 10*3/uLNormal0.00-0.20[facility] Comment on above:Performed By: #### DIFF ####TC EXTERNAL LAB (TCHXLAB)[address] [place] [address] 1Basophils/100 WBC (Bld)0.9 %NormalThe [facility] CenterComment on above:Performed By: #### DIFF ####TC EXTERNAL LAB (TCXLAB)[address] [place] [address] 1Eosinophils (Bld) [#/Vol]0.29 10*3/uLNormal0.00-0.50[facility] HospitalComment on above:Performed By: #### DIFF ####TC EXTERNAL LAB (TCXLAB)[address] [place] [address] 1 Eosinophils/100 WBC (Bld)5.1 %NormalThe [facility] CenterComment on above: Performed By: #### DIFF ####TC EXTERNAL LAB (TCXLAB)[address] [place] [address] 1Immature granulocytes (Bld) [#/Vol]0.02 10*3/uL Normal0.00-0.10The [facility] CenterComment on above:Performed By: #### DIFF ####TC EXTERNAL LAB (TCXLAB)[address] [place] [address] 1Immature granulocytes/100 WBC (Bld)0.4 %Normal0.0-2.0The [facility] CenterComment on above: Performed By: #### DIFF ####TC EXTERNAL LAB (TCXLAB)[address] [place] [address] 1Lymphocytes (Bld) [#/Vol]0.86 10*3/uLNormal0.80-3.90 The [facility] CenterComment on above:Performed By: #### DIFF ####TC EXTERNAL LAB (TCXLAB)[address] [place] [address] 1Lymphocytes/100 WBC (Bld)15.1 %NormalThe [facility] HospitalComment on above:Performed By: #### DIFF ####TC EXTERNAL LAB (TCXLAB)[address] [place] [address] 1Monocytes (Bld) [#/Vol]0.82 10*3/uLNormal0.20-0.90[facility] HospitalComment on above:Performed By: #### DIFF ####TC EXTERNAL LAB (TCHXLAB)[address] [place] [address] 1Monocytes/100 WBC (Bld)14.4 %NormalThe [facility] on above: Performed By: #### DIFF ####TC EXTERNAL LAB (TCHXLAB)[address] [place] [address] 1NEUTROPHILS ABSOLUTE COUNT3.66 10*3/uLNormal 1.50-7.80[facility] on above:Performed By: #### DIFF ####TC EXTERNAL LAB (TCHXLAB)[address] [place] [address] 1Neutrophils/100 WBC (Bld)64.1 %NormalThe [facility] on above:Performed By: #### DIFF ####TC EXTERNAL LAB (TCHXLAB)[address] [place] [address] 1NUCLEATED RED BLOOD CELLS0 /100 WBCNormal0-0The [facility] on above:Performed By: #### DIFF ####TC EXTERNAL LAB (TCHXLAB)[address] [place] [address] 1FERRITINon 32-74-7774Uzdhfkky [Mass/Vol]31 ng/jHSwcdwp31-689Oby [facility] on above:Performed By: #### FERRIT ####TC EXTERNAL LAB (TCHXLAB)[address] [place] [address] 1FOLIC ACIDon 02-92-4204FCYXFF 6.7 ng/mLLow7.0-31.4The [facility] on above:Result Comment: Folate deficiency is typically associated with serum levels less than 3.5 ng/mL. Values between 3.5 and 7.0 ng/mL are considered borderline. Occasionally, the diagnosis of folate deficiency cannot be based solely on serum levels and further testing may be considered.Performed By: #### FOLATE ####TC EXTERNAL LAB (TCHXLAB)[address] [place] [address] 1HEPATITIS B SURFACE AGon 29-09-2156BXGHXDIVT B SURFACE ANTIGENNon-ReactiveNormalNonreactiveThe [facility] HospitalComment on above:Result Comment: HBs Antigen not detected.Performed By: #### HBSAG ####TC EXTERNAL LAB (TCHXLAB)[address] [place] [address] 1IRON STUDIES (FE + TIBC + SAT)on 02-19-8115Gkgx [Mass/Vol]69 ug/bNEebyex18-329 [facility] on above:Performed By: #### IRNS ####TC EXTERNAL LAB (TCHXLAB)[address] [place] [address] 1PCT JNXAKCGIQPE74 %Srt70-10TsyMetroHealth Cleveland Heights Medical Center on above:Performed By: #### IRNS ####TC EXTERNAL LAB (TCXLAB)[address] [place] [address] 1TOTAL IRON BINDING KUQYHVLU020 ug/nCLxciol856-223EsdMetroHealth [facility] Center on above:Performed By: #### IRNS ####TC EXTERNAL LAB (TCHXLAB)[address] [place] [address] 1No Panel Informationon 75-35-3562YuhBarnesville HospitalQUANTIFERON(R) TB GOLDon 09-10-2024 MITOGEN NIL>10.00[facility] on above:Performed By: #### TBGOLD ####TC NIECY LAB (TCAS)[address] [place], [place] [address]SDE2.07 IU/mLNormalMetroHealth [facility] Center on above:Performed By: #### TBGOLD ####TC NIECY LAB (TCAS)[address] [place], [place] [address]WPPBPROWEIJ (R)- TB GOLDNegativeNormalNegativeMetroHealth Cleveland Heights Medical Center on above:Result Comment: Interferon-gamma response to M. tuberculosis antigens was not detected. M. tuberculosis infection unlikely. Additional testing for high-risk individuals should be considered in accordance with the 2017 ATS/IDSA/CDC Clinical Practice guidelines. QuantiFERON-TB Gold Plus is a qualitative chemiluminescent immunoassay test for M. tuberculosis infection (including disease) performed on the [employer] LiaQumulo XL and is intended foruse in conjunction with risk assessment, radiography, and other medical and diagnostic evaluations. The QuantiFERON-TB Gold Plus result is determined by subtracting the Nil value from either TB antigen (Ag) value. The Mitogen tube is the control for the test.Performed By: #### TBGOLD ####[facility])[address] [place], [place] [address]MB-KQS1.01 IU/mLNormalMetroHealth [facility] Heights [facility] Center on above:Performed By: #### TBGOLD ####[facility] ([facility])[address] [place], [place] [address]FS3-XUT2.01 IU/mLNormalMetroHealth [facility] Center on above:Performed By: #### TBGOLD ####[facility] ([facility])[address] [place], [place] [address]DUJZGJV B12 (CYANOCOBALAMIN)on 63-55-1963Wyjpmbvur (Vitamin B12) [Mass/Vol]322 pg/oMBhwtuw426-271RwiMetroHealth Cleveland Heights Medical Center on above:Result Comment: Please note that B12 levels above 300 or 400 are rarely associated with B12 deficiency induced hematological or neurological disease, respectively. Further testing is suggested for symptomatic patients with B12 levels between 100 and 300 pg/mL (hematological abnormalities), and between 100 and 400 pg/mL (neurological abnormalities).Performed By: #### B12 ####TC EXTERNAL LAB (TCXLAB)[address] [place] [address] 1VITAMIN D 25 HYDROXY TOTALon 41-85-1180YQFGIPJ D 25-OTENEPG96 ng/kWJsc13-24UxcMetroHealth Cleveland Heights Medical Center on above:Result Comment: Therapy is based on measurement of Total 25-OHD, with levels <20 ng/mL indicative of Vitamin D deficiency, while levels between 20 ng/mL and 30 ng/mL suggest insufficiency. Sufficient levels are >or = 30 ng/mL.Performed By: #### VITD ####TC EXTERNAL LAB (TCXLAB)[address] [place] [address] 1MRI-ABDOMEN W/WO CONTRASTon 19-66-9147WUQ- ABDOMEN W/WO CONTRASTEXAM: MRI-ABDOMEN W/WO CONTRAST, MRI-PELVIS W/WO CONTRAST INDICATION: Crohn's disease with fistula, unspecified gastrointestinal tract location COMPARISON: MRI dated 11/18/2020, CT dated 03/04/2023. TECHNIQUE: Multiplanar multi-sequential MR images of the abdomen and pelvis were obtained accordingto the MR enterography protocol. Imaging was obtained prior to and following administration of intravenous contrast. IV Contrast: 11 ml Gadavist. ORAL Contrast: Breeza FINDINGS: BOWEL: No evidence of abscess. No focal inflammatory inflammatory edema associated with bowel. There are findings consistent with sequelae of inflammatory bowel disease with abnormal bandlike tethering identified in the right lower abdomen. There is associated fistula formation between adjacent hiro l loops in this location which includes the terminal ileum. Involved small bowel also demonstrates mucosal hyperenhancement and multifocal luminal narrowing suggesting stricturing. This is consistent with fibrous stenotic change. The appendix is also involved with fibrotic changes in the right lower quadrant. These findings are progressed compared to MR arthrography from 11/18/2020. No upstream bowel dilation present to suggest obstruction. LIVER: The liver is incompletely included in the socdv-ee-qnce. There is a T2 hyperintense lesion in the right hepatic lobe laterally on series 4 image 6 measuring 2 cm which remains consistent with a benign hemangioma. No evidence of suspicious liver lesion.. GALLBLADDER AND BILIARY TREE: No gallstones. No gallbladder distention. No intra- or extrahepatic biliary dilatation. PANCREAS: Normal. SPLEEN: Normal. ADRENAL GLANDS: Normal. KIDNEYS AND URETERS: The kidneys demonstrate symmetric contrast enhancement. No suspicious renal lesion. There is moderate right hydronephrosis with similar findings on prior studies. Right ureter isdilated proximally and tapers abruptly at the level of the right lower abdomen and adjacent fibrotic changes associated with nearby bowel. This therefore may represent a chronic inflammatory stricture. No hydronephrosis on the left.. LYMPH NODES: No abnormally enlarged nodes. PERITONEUM/RETROPERITONEUM: No significant free fluid. VESSELS: Aorta is normal in caliber. Vasculature is patent. ABDOMINAL WALL: Normal. BONES: No suspicious marrow signal abnormality. OTHER FINDINGS: None. IMPRESSION: IMPRESSION: 1. Chronic sequelae of inflammatory bowel disease in the right lower quadrant involving long segment of distal small bowel including terminal ileum as well as the appendix. Fistula formation, stenotic distal ileum, and fibrotic bandlike tethering has progressed compared to MRI enterography from 11/18/2020. Mucosal hyperenhancement may reflect a mild component of active inflammation. No evidence ofobstruction or abscess. 2. Redemonstration of right hydronephrosis and proximal mid right ureteral dilation with abrupt tapering of the right ureter at the level of the right lower abdomen. This is consistent with inflammatory stricture given the adjacent fibrotic changes in the right lower quadrant. Signed By: Diana GOLD, [facility] HospitalMRI-PELVIS W/WO CONTRASTon 27-13-2387BEX-PELVIS W/WO CONTRASTEXAM: MRI-ABDOMEN W/WO CONTRAST, MRI-PELVIS W/WO CONTRAST INDICATION: Crohn's disease with fistula, unspecified gastrointestinal tract location COMPARISON: MRI dated 11/18/2020, CT dated 03/04/2023. TECHNIQUE: Multiplanar multi-sequential MR images of the abdomen and pelvis were obtained accordingto the MR enterography protocol. Imaging was obtained prior to and following administration of intravenous contrast. IV Contrast: 11 ml Gadavist. ORAL Contrast: Breeza FINDINGS: BOWEL: No evidence of abscess. No focal inflammatory inflammatory edema associated with bowel. There are findings consistent with sequelae of inflammatory bowel disease with abnormal bandlike tethering identified in the right lower abdomen. There is associated fistula formation between adjacent hiro l loops in this location which includes the terminal ileum. Involved small bowel also demonstrates mucosal hyperenhancement and multifocal luminal narrowing suggesting stricturing. This is consistent with fibrous stenotic change. The appendix is also involved with fibrotic changes in the right lower quadrant. These findings are progressed compared to MR arthrography from 11/18/2020. No upstream bowel dilation present to suggest obstruction. LIVER: The liver is incompletely included in the byhkd-cy-nkmi. There is a T2 hyperintense lesion in the right hepatic lobe laterally on series 4 image 6 measuring 2 cm which remains consistent with a benign hemangioma. No evidence of suspicious liver lesion.. GALLBLADDER AND BILIARY TREE: No gallstones. No gallbladder distention. No intra- or extrahepatic biliary dilatation. PANCREAS: Normal. SPLEEN: Normal. ADRENAL GLANDS: Normal. KIDNEYS AND URETERS: The kidneys demonstrate symmetric contrast enhancement. No suspicious renal lesion. There is moderate right hydronephrosis with similar findings on prior studies. Right ureter isdilated proximally and tapers abruptly at the level of the right lower abdomen and adjacent fibrotic changes associated with nearby bowel. This therefore may represent a chronic inflammatory stricture. No hydronephrosis on the left.. LYMPH NODES: No abnormally enlarged nodes. PERITONEUM/RETROPERITONEUM: No significant free fluid. VESSELS: Aorta is normal in caliber. Vasculature is patent. ABDOMINAL WALL: Normal. BONES: No suspicious marrow signal abnormality. OTHER FINDINGS: None. IMPRESSION: IMPRESSION: 1. Chronic sequelae of inflammatory bowel disease in the right lower quadrant involving long segment of distal small bowel including terminal ileum as well as the appendix. Fistula formation, stenotic distal ileum, and fibrotic bandlike tethering has progressed compared to MRI enterography from 11/18/2020. Mucosal hyperenhancement may reflect a mild component of active inflammation. No evidence ofobstruction or abscess. 2. Redemonstration of right hydronephrosis and proximal mid right ureteral dilation with abrupt tapering of the right ureter at the level of the right lower abdomen. This is consistent with inflammatory stricture given the adjacent fibrotic changes in the right lower quadrant. Signed By: Diana GOLD, [facility] HospitalNo Panel Informationon [id number]: 1. Chronic sequelae of inflammatory bowel disease in the right lower quadrant involving long segment of distal small bowel including terminal ileum as well as the appendix. Fistula formation, stenotic distal ileum, and fibrotic bandlike tethering has progressed compared to MRI enterography from 11/18/2020. Mucosal hyperenhancement may reflect a mild component of active inflammation. No evidence ofobstruction or abscess. 2. Redemonstration of right hydronephrosis and proximal mid right ureteral dilation with abrupt tapering of the right ureter at the level of the right lower abdomen. This is consistent with inflammatory stricture given the adjacent fibrotic changes in the right lower quadrant. Signed By: Diana GOLD, [facility], IncEXAM: MRI-ABDOMEN W/WO CONTRAST, MRI-PELVIS W/WO CONTRAST INDICATION: Crohn's disease with fistula, unspecified gastrointestinal tract location COMPARISON: MRI dated 11/18/2020, CT dated 03/04/2023. TECHNIQUE: Multiplanar multi-sequential MR images of the abdomen and pelvis were obtained accordingto the MR enterography protocol. Imaging was obtained prior to and following administration of intravenous contrast. IV Contrast: 11 ml Gadavist. ORAL Contrast: Breeza FINDINGS: BOWEL: No evidence of abscess. No focal inflammatory inflammatory edema associated with bowel. There are findings consistent with sequelae of inflammatory bowel disease with abnormal bandlike tethering identified in the right lower abdomen. There is associated fistula formation between adjacent hiro l loops in this location which includes the terminal ileum. Involved small bowel also demonstrates mucosal hyperenhancement and multifocal luminal narrowing suggesting stricturing. This is consistent with fibrous stenotic change. The appendix is also involved with fibrotic changes in the right lower quadrant. These findings are progressed compared to MR arthrography from 11/18/2020. No upstream bowel dilation present to suggest obstruction. LIVER: The liver is incompletely included in the zdqfu-nm-xlvo. There is a T2 hyperintense lesion in the right hepatic lobe laterally on series 4 image 6 measuring 2 cm which remains consistent with a benign hemangioma. No evidence of suspicious liver lesion.. GALLBLADDER AND BILIARY TREE: No gallstones. No gallbladder distention. No intra- or extrahepatic biliary dilatation. PANCREAS: Normal. SPLEEN: Normal. ADRENAL GLANDS: Normal. KIDNEYS AND URETERS: The kidneys demonstrate symmetric contrast enhancement. No suspicious renal lesion. There is moderate right hydronephrosis with similar findings on prior studies. Right ureter isdilated proximally and tapers abruptly at the level of the right lower abdomen and adjacent fibrotic changes associated with nearby bowel. This therefore may represent a chronic inflammatory stricture. No hydronephrosis on the left.. LYMPH NODES: No abnormally enlarged nodes. PERITONEUM/RETROPERITONEUM: No significant free fluid. VESSELS: Aorta is normal in caliber. Vasculature is patent. ABDOMINAL WALL: Normal. BONES: No suspicious marrow signal abnormality. OTHER FINDINGS: None. [facility] HospitalHarpal camacho MD - 08/18/2024 EXAM: MRI-ABDOMEN W/WO CONTRAST, MRI-PELVIS W/WO CONTRAST INDICATION: Crohn's disease with fistula, unspecified gastrointestinal tract location COMPARISON: MRI dated 11/18/2020, CT dated 03/04/2023. TECHNIQUE: Multiplanar multi-sequential MR images of the abdomen and pelvis were obtained accordingto the MR enterography protocol. Imaging was obtained prior to and following administration of intravenous contrast. IV Contrast: 11 ml Gadavist. ORAL Contrast: Breeza FINDINGS: BOWEL: No evidence of abscess. No focal inflammatory inflammatory edema associated with bowel. There are findings consistent with sequelae of inflammatory bowel disease with abnormal bandlike tethering identified in the right lower abdomen. There is associated fistula formation between adjacent hiro l loops in this location which includes the terminal ileum. Involved small bowel also demonstrates mucosal hyperenhancement and multifocal luminal narrowing suggesting stricturing. This is consistent with fibrous stenotic change. The appendix is also involved with fibrotic changes in the right lower quadrant. These findings are progressed compared to MR arthrography from 11/18/2020. No upstream bowel dilation present to suggest obstruction. LIVER: The liver is incompletely included in the rjyct-wl-joxk. There is a T2 hyperintense lesion in the right hepatic lobe laterally on series 4 image 6 measuring 2 cm which remains consistent with a benign hemangioma. No evidence of suspicious liver lesion.. GALLBLADDER AND BILIARY TREE: No gallstones. No gallbladder distention. No intra- or extrahepatic biliary dilatation. PANCREAS: Normal. SPLEEN: Normal. ADRENAL GLANDS: Normal. KIDNEYS AND URETERS: The kidneys demonstrate symmetric contrast enhancement. No suspicious renal lesion. There is moderate right hydronephrosis with similar findings on prior studies. Right ureter isdilated proximally and tapers abruptly at the level of the right lower abdomen and adjacent fibrotic changes associated with nearby bowel. This therefore may represent a chronic inflammatory stricture. No hydronephrosis on the left.. LYMPH NODES: No abnormally enlarged nodes. PERITONEUM/RETROPERITONEUM: No significant free fluid. VESSELS: Aorta is normal in caliber. Vasculature is patent. ABDOMINAL WALL: Normal. BONES: No suspicious marrow signal abnormality. OTHER FINDINGS: None. IMPRESSION: 1. Chronic sequelae of inflammatory bowel disease in the right lower quadrant involving long segment of distal small bowel including terminal ileum as well as the appendix. Fistula formation, stenotic distal ileum, and fibrotic bandlike tethering has progressed compared to MRI enterography from 11/18/2020. Mucosal hyperenhancement may reflect a mild component of active inflammation. No evidence ofobstruction or abscess. 2. Redemonstration of right hydronephrosis and proximal mid right ureteral dilation with abrupt tapering of the right ureter at the level of the right lower abdomen. This is consistent with inflammatory stricture given the adjacent fibrotic changes in the right lower quadrant. Signed By: Harpal Ortiz MD [facility] Study observation (narrative)The [facility] Panel InformationOrdered By: Harpal Ortiz on 79-02-7812FitBarnesville Hospital Work Phone: RENAL PROFILEon 69-64-2920Emeyrgb [Mass/Vol]4.1 g/dL Normal3.5-5.0The [facility] CenterComment on above:Performed By: #### KIDNEY ####TC EXTERNAL LAB (TCHXLAB)[address] [place] [address] 1Anion gap [Moles/Vol]9 mmol/LNormal5-13The [facility] CenterComment on above:Result Comment: Anion gap calculation does not include potassium (K+) value.Performed By: #### KIDNEY ####TC EXTERNAL LAB (TCHXLAB)[address] [place] [address] 1BUN / CREAT QBHSU0TpbsxjVyxSalem Regional Medical CenterComment on above:Performed By: #### KIDNEY ####TC EXTERNAL LAB (TCHXLAB)[address] [place] [address] 1 Calcium [Mass/Vol]8.9 mg/dLNormal8.5-10.5The [facility] CenterComment on above: Performed By: #### KIDNEY ####TC EXTERNAL LAB (TCHXLAB)[address] [place] [address] 1Chloride [Moles/Vol]101 mmol/VFxrvxy61-123Gjd [facility] CenterComment on above:Performed By: #### KIDNEY ####TC EXTERNAL LAB (TCHXLAB)[address] [place] [address] 1CO2 [Moles/Vol]26 mmol/LNormal 22-29The [facility] CenterComment on above:Performed By: #### KIDNEY ####TC EXTERNAL LAB (TCHXLAB)[address] [place] [id number] 1Creatinine [Mass/Vol]1.26 mg/dLNormal0.50-1.30The [facility] CenterComment on above:Performed By: #### KIDNEY ####TC EXTERNAL LAB (TCHXLAB)[address] [place] [address] 1EGFR CKD-EPI 874959 See Cherrington HospitalComment on above: Result Comment: eGFR calculated with 2020 CKD-EPI equation using creatinine, patient's age and gender. Other factors, especially muscle mass, may affect accuracy and need to be considered. Patient values should be interpreted as a trend. The reference interval is >60 mL/min/1.73m2.Performed By: #### KIDNEY ####[facility] EXTERNAL LAB (TCXLAB)[address] [place] [address] 1Glucose [Mass/Vol]96 mg/pIXkjckj73-60EwrBarnesville HospitalComment on above: Result Comment: Reference range (71-99 mg/dL) refers only to fasting samples, and does not apply tonon-fasting samples.Performed By: #### KIDNEY ####[facility] EXTERNAL LAB (TCXLAB)[address] [place] [address] 1Phosphate [Mass/Vol]2.5 mg/dLNormal2.5-4.5The [facility] CenterComment on above:Performed By: #### KIDNEY ####TC EXTERNAL LAB (TCXLAB)[address] [place] [address] 1Potassium [Moles/Vol]4.3 mmol/LNormal3.5-5.1The [facility] CenterComselect specialty hospital on above:Performed By: #### KIDNEY ####TC EXTERNAL LAB (TCXLAB)[address] [place] [address] 1Sodium [Moles/Vol]136 mmol/DGhremh914-730FrgBarnesville HospitalComment on above:Performed By: #### KIDNEY ####TC EXTERNAL LAB (TCHXLAB)[address] [place] [address] 1Urea nitrogen [Mass/Vol]10 mg/dLNormal7-25The [facility] CenterComment on above:Performed By: #### KIDNEY ####TC EXTERNAL LAB (TCXLAB)[address] [place] [address] 1RENAL PROFILEon 74-23-4614Nkyhmnq Ql (U)3.8 g/dL3.5 - 5.0 g/dLBarnesville HospitalAni gap [Moles/Vol]9 mmol/L5 - 13 mmol/LThe [facility] CenterComment on above:Anion gap calculation does not include potassium (K+) value.Calcium [Mass/Vol]8.8 mg/dL8.5 - 10.5 mg/dLThe [facility] CenterChloride [Moles/Vol]104 mmol/L98 - 110 mmol/LThe [facility] CenterCO2 [Moles/Vol]26 mmol/L22 - 29 mmol/LThe [facility] CenterCreatinine [Mass/Vol]1.46 mg/dLHigh0.50 - 1.30 mg/dLBarnesville Hospital eGFR CKD-EPI 421404Iwh NoteThe [facility] CenterComselect specialty hospital on above:eGFR calculated with 2020 CKD-EPI equation using creatinine, patient's age and gender. Other factors, especially muscle mass, may affect accuracy and need to be considered. Patient values should be interpreted as a trend. The reference interval is >60 mL/min/1.73m2. Glucose post fast [Mass/Vol]94 mg/dL71 - 99 mg/dLThe [facility] on above:Reference range (71-99 mg/dL) refers only to fasting samples, and does not apply to non-fasting samples.Interpretation and review of laboratory results AbnormalThe [facility] CenterPhosphate [Mass/Vol]2.6 mg/dL2.5 - 4.5 mg/dLBarnesville HospitalPotassium [Moles/Vol]4.1 mmol/L3.5 - 5.1 mmol/LThe [facility] Townshipodium [Moles/Vol]139 mmol/L135 - 146 mmol/LThe [facility] CenterUrea nitrogen [Mass/Vol]10 mg/dL7 - 25 mg/dLThe [facility] CenterUrea nitrogen/Creatinine [Mass ratio]7 mg/mgThe [facility] Albumin [Mass/Vol]3.8 g/dLNormal3.5-5.0The [facility] CenterComment on above: Performed By: #### KIDNEY ####TC EXTERNAL LAB (TCXLAB)[address] [place] [address] 1Anion gap [Moles/Vol]9 mmol/LNormal5-13The [facility] CenterComselect specialty hospital on above:Result Comment: Anion gap calculation does not include potassium (K+) value.Performed By: #### KIDNEY ####TC EXTERNAL LAB (TCXLAB)[address] [place] [address] 1BUN / CREAT KPFPU7XdccvmXbx [facility] CenterComment on above:Performed By: #### KIDNEY ####TC EXTERNAL LAB (TCXLAB)[address] [place] [address] 1Calcium [Mass/Vol]8.8 mg/dL Normal8.5-10.5The [facility] CenterComment on above:Performed By: #### KIDNEY ####TC EXTERNAL LAB (TCHXLAB)[address] [place] [address] 1Chloride [Moles/Vol]104 mmol/GEdvuih43-810Aql [facility] on above:Performed By: #### KIDNEY ####TC EXTERNAL LAB (TCXLAB)[address] [place] [address] 1CO2 [Moles/Vol]26 mmol/RYhqdxk27-49Xdc [facility] on above: Performed By: #### KIDNEY ####TC EXTERNAL LAB (TCXLAB)[address] [place] [address] 1Creatinine [Mass/Vol]1.46 mg/dLHigh0.50-1.30The [facility] on above:Performed By: #### KIDNEY ####TC EXTERNAL LAB (TCXLAB)[address] [place] [address] 1EGFR CKD-EPI 321195 See Note NormalThe [facility] on above:Result Comment: eGFR calculated with 2020 CKD-EPI equation using creatinine, patient's age and gender. Other factors, especially muscle mass, may affect accuracy and need to be considered. Patient values should be interpreted as a trend. The reference interval is >60 mL/min/1.73m2.Performed By: #### KIDNEY ####TC EXTERNAL LAB (TCXLAB)[address] [place] [address] 1Glucose [Mass/Vol]94 mg/oBMimwfi15-09Cpf [facility] on above: Result Comment: Reference range (71-99 mg/dL) refers only to fasting samples, and does not apply tonon-fasting samples.Performed By: #### KIDNEY ####TCH EXTERNAL LAB (TCHXLAB)[address] [place] [address] 1Phosphate [Mass/Vol]2.6 mg/dLNormal2.5-4.5The [facility] CenterComment on above:Performed By: #### KIDNEY ####TC EXTERNAL LAB (TCHXLAB)[address] [place] [address] 1Potassium [Moles/Vol]4.1 mmol/LNormal3.5-5.1The [facility] HospitalComment on above:Performed By: #### KIDNEY ####TC EXTERNAL LAB (TCHXLAB)[address] [place] [address] 1Sodium [Moles/Vol]139 mmol/RNhbhoe221-172Qwh [facility] CenterComment on above:Performed By: #### KIDNEY ####[facility] EXTERNAL LAB (TCXLAB)[address] [place] [id number] 1Urea nitrogen [Mass/Vol]10 mg/dLNormal7-25The [facility] CenterComment on above:Performed By: #### KIDNEY ####[facility] EXTERNAL LAB (TCXLAB)[address] [place] [address] 1ROUTINE URINE CULTUREon 50-61-6252AMFAUDZ URINE CULTURECULTURE RESULT No GrowthProMedica Memorial HospitalComment on above:Performed By: #### UC ####[facility] [place] [address] Encounters Encounter DateEncounter TypeCare ProviderFacilityStart: 02-04-2025 End: 47-66-8501fzayekmjuiZCKT [facility]: 01-25-2025 End: 56-97-1173tplimrvifgNBJR [facility]: 01-18-2025 End: 75-30-7952jlnksfvfphYENC [facility]: 01-14-2025 End: 50-77-8491sctdkcuwsjATPG [facility]: 01-07-2025 End: 07-32-7076xzmtbygyrdMFLQ Simone Haas [facility] Townshiptart: 11-18-2024 End: 94-61-9912cauybenuhhTACW Simone Haas [facility]: 10-05-2024 End: 78-85-9933Ojdhnldrfo hospital visit by physicianRene Thakkar Comment on above:Crohn's disease with fistula, unspecified gastrointestinal tract location ([facility])Start: 10-05-2024 End: 01-02-2574tgqpctmnybLAXJ Simone [facility] HospitalStart: 09-10-2024 End: 56-95-7912Pxekgtnkeq hospital visit by physicianRene Thakkar Comment on above:Crohn's disease with complication, unspecified gastrointestinal tract location ([facility])Start: 09-10-2024 End: 88-50-6083bqcegggahyXKPH Simone Haas [facility]: 08-20-2024 End: 66-52-1372czjgvwtmyuXXUM Simone [facility]er[facility] Hospitaltart: 08-18-2024 End: 78-20-9703Lfokefiqol hospital visit by physicianCmr4 ([facility] 4)The [facility] HospitalComment on above:Crohn's disease with fistula, unspecified gastrointestinal tract location ([facility])Start: 08-18-2024 End: 05-08-5777blqostppxtGIQH Simone Haas [facility]: 08-14-2024 End: 82-54-0266whimmyzeveTXHV Simone Haas [facility]: 07-20-2024 End: 70-15-5133cdxqkazwjvKWRE Simone Haas [facility]: 07-13-2024 End: 44-33-9642lcuhbjyygzBMXX Simone [facility]ESMer[facility] Hospitaltart: 07-09-2024 End: 41-16-6971bvoywdplevGABK Simone Haas [facility]: 07-02-2024 End: 64-18-8037Akhgylsdht hospital visit by physicianRene Thakkar Comment on above:Urinary tract infection without hematuria, site unspecified Start: 07-02-2024 End: 60-22-0116ygypdbhclcHSQL M. NIAdams County Regional Medical Centertart: 06-25-2024 End: 32-41-6387splnfackhkEQSF M. [facility] Procedures DateProcedureProcedure DetailPerforming ClinicianStart: 58-61-1463Ftuasx-up visitFollow-upSARA Lewis CASTILLOKAMPStart: 51-11-4377IOL panel - Blood by Automated countArtur Nichols Lopez DO Work Phone: Start: 65-16-9640Bjwjbabxnxgvu metabolic panelArtur HodgsonBree Lopez DO Work Phone: Start: 06-59-1265V-reactive proteinLudinbecky Pollock TRIAL MANAGER Work Phone: Start: 55-32-9981JBT W Auto Differential panel - Blood Wale Pollock TRIAL MANAGER Work Phone: Start: 26-07-0606Scyhfxosspsuy metabolic panelaWle Pollock TRIAL MANAGER Work Phone: Start: 85-67-3800WWSGOQCNRHSYVgfhqo Johnson TRIAL MANAGER Work Phone: Start: 43-84-4793Ipfvtfzg [Mass/volume] in Serum or PlasmaWale Pollock TRIAL MANAGER Work Phone: Start: 99-49-0010OEOPR ACIDWale Pollock TRIAL MANAGER Work Phone: Start: 96-75-1499Pvos ia hepatitis b surface antigen Wale Pollock TRIAL MANAGER Work Phone: Start: 05-19-2621UIYF STUDIES (FE + TIBC + SAT)Wale Pollock TRIAL MANAGER Work Phone: Start: 37-72-1593EDGBYGO D 25 HYDROXY TOTALWale Pollock TRIAL MANAGER Work Phone: Start: 46-19-2101Khe pelvis w/o & w/contrast material Analisa Brian MD Work Phone: Start: 79-90-7581FWCPJ [facility] DARLINGTONDomi Lyles MD Work Phone: Start: 18-48-1218Wrlna 1995 panel - Serum or PlasmaTch ParkStart: 68-14-0900Qfbpy depression screening assessmentParkview Medical Center Plan of Treatment DateCare ActivityDetailAuthorStart: 30-86-4432Adazo 1995 panel - Serum or Plasma Lipid ScreeningThe [facility] Town[facility]iptart: 80-41-4804Toqzbas Vaccination (Every 10 Years)Tetanus Vaccination (Every 10 Years)The [facility]: 09-22-2024 End: 2410Xuvtfes encounter yveflszun54/04/2025 9:45 AM EST Office Visit [facility] - Colon and Rectal Surgery, [address] [address] Analisa Brian MD [address] [place] [phone] [facility] Colon [facility] Rectal [facility], [facility]: 08-20-2024 End: 51-70-9282Agsucjv encounter eobdgpmlv26/30/2025 9:00 AM EST Office Visit [facility] - Colon and Rectal Surgery, [address] [address] Analisa Brian MD [address] [place] [phone] [facility] - Colon and Rectal Surgery, [facility]: 08-18-2024 End: 68-80-8838Tweszvt encounter procedureThe [facility]: 07-23-2024 End: 56-80-0751Kzpgcgo encounter julegzque01/02/2025 11:00 AM EST Office Visit [facility] - Colon and Rectal Surgery, [address] [phone] Analisa Brian MD [address] [facility] [address] - [place] [phone] [facility] - Colon and Rectal Surgery, [facility]art: 76-64-3298YJW CounselingBMI CounselingThe [facility]art: 97-53-2042Bqyyfyvrab ScreeningDepression ScreeningThe [facility]: 23-16-3736Lxdsj/Overweight CounselingUnder/Overweight Counseling The [facility]: 07-09-2024 End: 30-34-4741Cirqvzf encounter rqjjzners57/19/2024 9:00 AM EST Office Visit [facility] - Colon and Rectal Surgery, [address] [phone] Ada Monteiro NP [facility] [address] [facility] Colon and Rectal Surgery, [facility]: 26-00-0186MYFEH-19 Vaccine ( season)COVID- 19 Vaccine ( season)[facility]: 14-90-4708Juxzxmrgeioe vaccination against influenzaInfluenza Vaccination (#1)[facility]: 19-69-1569Jlwefskqpq ScreeningDepression ScreeningThe [facility]: 13-28-3586Ddsqbsp Cessation CounselingTobacco Cessation CounselingBarnesville Hospital End: 30-66-8883JGWHHIVWXZP(R) TB GOLDQUANTIFERON(R) TB GOLD Lab Routine Crohn's disease with complication, unspecified gastrointestinal tract location ([facility]) 1 Occurrences starting 09/10/2024 until 09/10/2024[facility] Work Phone: Comment on above:1 Occurrences starting 09/10/2024 until 09/10/2024 End: 24-96-8139QLAFGXG URINE CULTURETHE [facility] Work Phone: Comment on above:1 Occurrences starting 07/02/2024 until 07/02/2024 Immunizations Immunization DateImmunizationNotesCare JeqofsqfGzysifbp93-54-8324Hljsczge, quadrivalent, recombinant, injectable influenza vaccine, preservative freeMercy Health West HospitalCbxlxwsc70-55-0358EAUK-Pmw-7 Vaccine Red Top 12+yrs Old (MODERNA) [facility] HospitalHzvicftz49-93-2129KISR-Zym-9 Vaccine Red Top 12+yrs Old (MODERNA)[facility]11-21-2021Seasonal, quadrivalent, recombinant, injectable influenza vaccine, preservative freeMercy Health West HospitalBmrqckvl70-43-4444Eacsa83-Ydkc-oix-5 Vaccine 12+YRS Old (PFIZER Purple)[facility] Work Phone: [phone]-Miyx-ypd-6 Vaccine 12+YRS Old (PFIZER Purple)[facility]09-03-2020Seasonal, quadrivalent, recombinant, injectable influenza vaccine, preservative freeMercy Health West Hospital11-04-2019Seasonal, quadrivalent, recombinant, injectable influenza vaccine, preservative freeMercy Health West Hospital12-01-2017influenza, intradermal, quadrivalent, preservative free, injectableMercy Health West Hospital05-10-2017PPD TestMercy Health West Hospital10-31-2016influenza, injectable, quadrivalent, preservative freeMercy Health West Hospital10-28-2015 tetanus toxoid, reduced diphtheria toxoid, and acellular pertussis vaccine, adsorbedMercy Health West Hospital01-01-2013tetanus toxoid, reduced diphtheria toxoid, and acellular pertussis vaccine, [facility] Work Phone: [phone]etju B vaccine, pediatric or pediatric/adolescent dosageMercy Health West Hospital08-12-2009tetanus toxoid, reduced diphtheria toxoid, and acellular pertussis vaccine, [facility]08-24-2007hepatitis A and hepatitis B vaccineMercy Health West HospitalOfldrvmr70-10-0982bhvdlokqkdwam polysaccharide (groups A, C, Y and W-135) diphtheria toxoid conjugate vaccine (MCV4P)[facility]10-28-1999 measles, mumps and rubella virus vaccineMercy Health West Hospital09-20-1993 diphtheria, tetanus toxoids and acellular pertussis vaccineMercy Health West Hospital09-20-1993trivalent poliovirus vaccine, live, oralMercy Health West HospitalGvjcbain21-00-9547tspczejzknp influenzae type b vaccine, PRP-T conjugateLancaster Municipal Hospital10-12-1989diphtheria, tetanus toxoids and pertussis vaccine [facility]10-12-1989measles, mumps and rubella virus vaccineMercy Health West Hospital10-12-1989trivalent poliovirus vaccine, live, oralMercy Health West HospitalXlnlzabe42-46-7484ieprvojkef, tetanus toxoids and pertussis vaccineMercy Health West HospitalNuyblkzn84-39-0710xhybkmqukp, tetanus toxoids and pertussis vaccineMercy Health West Hospital08-30-1988trivalent poliovirus vaccine, live, oralMercy Health West HospitalYmwawlke55-51-2738fdnkmexxld, tetanus toxoids and pertussis vaccineMercy Health West Hospital06-13-1988trivalent poliovirus vaccine, live, oralMercy Health West Hospital Payers DatePayer CategoryPayerPolicy [id number] Private Health InsuranceCIGNA Member Subscriber Plan / Payer (Effective 2023-Present) Name: Jesús Benavides Relation to Subscriber: Self Name: Jesús Benavides Payer ID: [id number] (NAIC) Type: O Address: [facility] [id number] [place] [id number] 54-42-1729Dbprjgt Health [id number] 09.06.840.1.883349.3.57[id number] 09.06.840.1.909962.3.57[id number] 2.840.1.281877.3.57[id number] 2.840.1.578892.3.57[id number] 2.0.1.427002.3.57[id number] 2.0.1.820561.3.57[id number] 2..1.714020.3.57[id number] 2..1.708522.3.57[id number] 2..1.217147.3.57[id number] 2..1.194962.3.57[id number] 2.0.1.378931.3.57[id number] 2..1.556370.3.57[id number] 2.0.1.218724.3.57[id number] 2.0.1.414810.3.57[id number] 2.840.1.785906.3.57[id number] 2.840.1.673804.3.57[id number] 2..840.1.083319.3.57[id number] 2.16.840.1.054759.3.579.2.1276 Social History DateTypeDetailFacilityStart: 68-45-0180Qorrbsg smoking status NHISOccasional tobacco smokerThe [facility] CenterHistory of tobacco useCigar SmokerThe [facility]ipt[facility]: 21-50-1657Rmqogmx use and exposureSmokeless tobacco non-userThe [facility]: 07-02-2024 End: 31-54-9808Unbirdozo beverage intakeCurrent drinker of alcohol (finding)[facility]: 03-09-2019 End: 41-84-4393Sijsgkneq beverage intakeThe [facility]: 03-09-2019 End: 80-80-6461Sijnskt use panelThe [facility] CenterPHQ-2 Awtcz7Ehp [facility]: 70-63-0662Vtqsdra CommentoccasThe [facility] Town[facility]iptart: 06-75-8846Lsv [facility] at [facility] Campustart: 22-57-6132Zlyqfu identityIdentifies as male gender (finding)[facility]: 08-26-2019 Sexual orientationHeterosexual (finding)[facility] Functional Status AddcNwuaaoseilBewggqZhqaozts76-36-0864Tiv you blind, or do you have serious difficulty seeing, even when wearing glassesNo 07/25/2018 12:42 AM Tamiko Bell RN [facility] Work Phone: [phone] you have serious difficulty walking or climbing stairsNo 07/25/2018 12:42 AM Tamiko Bell RN [facility]01-04-2019Do you have difficulty dressing or bathingNo 07/25/2018 12:42 AM Tamiko Bell RN [facility] SystemBvysoyel21-02-4622Yijwtjh of a physical, mental, or emotional condition, do you have difficulty doing errands alone such as visiting a physician's office or shoppingNo 07/25/2018 12:42 AM Tamiko Bell RN [facility] Mental Status FbbjDnvspzvgbnKdnlrlKwvmmxwh57-97-6318Jzpukqf of a physical, mental, or emotional condition, do you have serious difficulty concentrating, remembering, or making decisionsNo 07/25/2018 12:42 AM Tamiko Bell RN [facility] Clinical Notes 06-25-2024 to 02-04-2025 Note Date & ZqssKflhZzztiabo88-23-1556 NoteTHE [facility] Physicians - Colon and Rectal Surgery, OkBree T[address] [address] OFFICE VISIT Chief Complaint Patient presents with Follow-up History of Present Illness He reached out yesterday, concerned that packing had fallen out and wound had closed. His has been doing the dressing changes, she notes that it had been getting smaller with only a small amount of packing able to be placed. She says she did try to re-open the wound, unsuccessfully. Review of Systems Respiratory: Negative. Cardiovascular: Negative. Gastrointestinal: Negative. Genitourinary: Negative. Neurological: Negative. All other systems reviewed and are negative. Allergies Amoxicillin and Pcn (penicillins) Medications Encounter Medications(1) Histories He has a past medical history of Awareness under anesthesia, Blood in the stool, and Crohn disease ([facility]). . He has a past surgical history that includes HX Small intestine surgery (2005, 2009); pr unlisted procedure small intestine (2018); and pr incision & drainage pilonidal cyst simple (03/14/2020). His family history includes Heart Problems in his maternal grandfather and maternal uncle. He reports that he has been smoking cigars. He has never used smokeless tobacco. He reports current alcohol use. He reports that he does not use drugs. The following portions of the patient's history were reviewed and updated as appropriate: allergies, current medications, past family history, past Medical history, past social history, past surgical history, problem list, and review of systems I have independently reviewed and interpreted the most recent imaging studies. There were no vitals taken for this visit. Physical Exam Constitutional: Appearance: Normal appearance. HENT: Head: Normocephalic. Nose: Nose normal. Eyes: Conjunctiva/sclera: Conjunctivae normal. Pulmonary: Effort: Pulmonary effort is normal. Genitourinary: Comments: Top of cleft: well healed. No surrounding erythema or fluctuance. Musculoskeletal: General: Normal range of motion. Skin: General: Skin is warm and dry. Capillary Refill: Capillary refill takes less than 2 seconds. Neurological: General: No focal deficit present. Mental Status: He is alert and oriented to person, place, and time. Psychiatric: Mood and Affect: Mood normal. Behavior: Behavior normal. Thought Content: Thought content normal. Judgment: Judgment normal. Assessment: ICD-10-CM 1. Pilonidal abscess L05.01 Site is closed. I have attempted to re-open today, but unsuccessful. I do not palpate any cavity underneath. Advised that if it should re-open, begin to pack and schedule to be seen. He is following with GI, though lost his job, so currently unable to take biologic. Plan: Follow up prn Medical Decision Making: The following items were considered in medical decision making: Risks & Benefits: Risks, benefits, and treatment options discussed with patient. Referring MD: Analisa Brian MD Patient Care Team: Domi Lyles MD as PCP - General (Family Medicine) Nita Valle Michael D., MD (Inactive) (Gastroenterology) Emily Parra (Inactive) Analisa Brian MD (Colon and Rectal Surgery) @[id number]@ Electronically Signed By: Ada Monteiro NP (1) Outpatient Encounter Medications as of 02/04/2025 Medication Sig Dispense Refill azaTHIOprine (IMURAN) 50 mg tablet Take 50 mg by mouth in the morning. (Patient not taking: Reported on 01/25/2025) buPROPion XL (WELLBUTRIN XL) 150 mg tablet Take 150 mg by mouth in the morning. busPIRone (BUSPAR) 10 mg tablet Take 10 mg by mouth in the morning and 10 mg before bedtime. dextroamphetamine-amphetamine (Adderall XR) 30 mg Capsule, Sust. Release 24 hr Take 1 Capsule (30 mg) by mouth daily. 90 Capsule 0 No facility-administered encounter medications on file as of 02/04/2025.[id number] [facility] - Colon and Rectal Surgery, [facility] [address] [place] [address] [place] [phone] OFFICE VISIT Chief Complaint Patient presents with Follow-up Pilonidal abscess History of Present Illness He has been packing wound daily ( his is packing) after showering. Says it closed up a few times and she was able to open. Review of Systems Respiratory: Negative. Cardiovascular: Negative. Gastrointestinal: Negative. Genitourinary: Negative. Neurological: Negative. All other systems reviewed and are negative. Allergies Amoxicillin and Pcn (penicillins) Medications Encounter Medications(1) Histories He has a past medical history of Awareness under anesthesia, Blood in the stool, and Crohn disease ([facility]). . He has a past surgical history that includes HX Small intestine surgery (2005, 2009); pr unlisted procedure small intestine (2018); and pr incision & drainage pilonidal cyst simple (03/14/2020). His family history includes Heart Problems in his maternal grandfather and maternal uncle. He reports that he has been smoking cigars. He has never used smokeless tobacco. He reports current alcohol use. He reports that he does not use drugs. The following portions of the patient's history were reviewed and updated as appropriate: allergies, current medications, past family history, past Medical history, past social history, past surgical history, problem list, and review of systems I have independently reviewed and interpreted the most recent imaging studies. Pulse 73, temperature 98.9 F (37.2 C), temperature source Temporal, height 6' 3 (1.905 m), weight 286 lb 6.4 oz (129.9 kg), SpO2 97%. Physical Exam Constitutional: Appearance: Normal appearance. HENT: Head: Normocephalic. Eyes: Conjunctiva/sclera: Conjunctivae normal. Pulmonary: Effort: Pulmonary effort is normal. Genitourinary: Comments: Top of cleft - punctate opening with 1.5 cm depth. Serosanginous drainage. Fungal dermatitis right lateral ( under pad) Musculoskeletal: General: Normal range of motion. Skin: General: Skin is warm and dry. Capillary Refill: Capillary refill takes less than 2 seconds. Neurological: General: No focal deficit present. Mental Status: He is alert and oriented to person, place, and time. Psychiatric: Mood and Affect: Mood normal. Behavior: Behavior normal. Thought Content: Thought content normal. Judgment: Judgment normal. Assessment: ICD-10-CM 1. Pilonidal abscess L05.01 Continue to pack wound daily. He is using a large incontinence pad over wound with correlated fungal dermatitis under the pad. I have recommended using a small piece of the pad, just over the wound. This would allow dermatitis to resolve. Continue to use nystain powder under resolved. Plan: Follow up in 2 weeks. Medical Decision Making: The following items were considered in medical decision making: Risks & Benefits: Risks, benefits, and treatment options discussed with patient. Referring MD: Domi Lyles MD Patient Care Team: Domi Lyles MD as PCP - General (Family Medicine) Nita Valle Michael D., MD (Inactive) (Gastroenterology) Emily Parra (Inactive) Analisa Brian MD (Colon and Rectal Surgery) @[id number]@ Electronically Signed By: Ada Monteiro NP (1) Outpatient Encounter Medications as of 01/25/2025 Medication Sig Dispense Refill azaTHIOprine (IMURAN) 50 mg tablet Take 50 mg by mouth in the morning. (Patient not taking: Reported on 01/25/2025) buPROPion XL (WELLBUTRIN XL) 150 mg tablet Take 150 mg by mouth in the morning. busPIRone (BUSPAR) 10 mg tablet Take 10 mg by mouth in the morning and 10 mg before bedtime. dextroamphetamine-amphetamine (Adderall XR) 30 mg Capsule, Sust. Release 24 hr Take 1 Capsule (30 mg) by mouth daily. 90 Capsule 0 No facility-administered encounter medications on file as of 01/25/2025.[facility] [id number] NoteTHE [facility]MERLY [facility] - Colon and Rectal Surgery, [facility] [address] [place] [phone] OFFICE VISIT Chief Complaint Patient presents with Follow-up Pilonidal abscess History of Present Illness Follow up for wound check. His has been packing the wound daily. Review of Systems Respiratory: Negative. Cardiovascular: Negative. Gastrointestinal: Negative. Genitourinary: Negative. Neurological: Negative. All other systems reviewed and are negative. Allergies Amoxicillin and Pcn (penicillins) Medications Encounter Medications(1) Histories He has a past medical history of Awareness under anesthesia, Blood in the stool, and Crohn disease ([facility]). . He has a past surgical history that includes HX Small intestine surgery (2005, 2009); pr unlisted procedure small intestine (2018); and pr incision & drainage pilonidal cyst simple (03/14/2020). His family history includes Heart Problems in his maternal grandfather and maternal uncle. He reports that he has been smoking cigars. He has never used smokeless tobacco. He reports current alcohol use. He reports that he does not use drugs. The following portions of the patient's history were reviewed and updated as appropriate: I have independently reviewed and interpreted the most recent imaging studies. Pulse 80, temperature (!) 97.6 F (36.4 C), temperature source Temporal, height 6' 3 (1.905 m), weight 291 lb 6.4 oz (132.2 kg), SpO2 96%. Physical Exam Constitutional: Appearance: Normal appearance. HENT: Head: Normocephalic. Eyes: Conjunctiva/sclera: Conjunctivae normal. Pulmonary: Effort: Pulmonary effort is normal. Genitourinary: Comments: Top right of cleft: 1 cm x 1.8 depth defect with rim of thicken scar. Wound bed is healthy granulation. No surrounding erythema or induration. Serosang drainage. Fungal dermatitis lateral to wound Musculoskeletal: General: Normal range of motion. Skin: General: Skin is warm and dry. Neurological: General: No focal deficit present. Mental Status: He is alert and oriented to person, place, and time. Psychiatric: Mood and Affect: Mood normal. Behavior: Behavior normal. Thought Content: Thought content normal. Judgment: Judgment normal. Assessment: ICD-10-CM 1. Pilonidal abscess L05.01 Wound is healing without evidence of infection. Wound is cleansed, measured and 1/4 packing is placed in the wound depth. Covered and secured to leave fungal dermatitis exposed. Recommended using nystatin powder to dermatitis Plan: Follow up next week for wound check. He is out of town next week, will return in 2 weeks. Medical Decision Making: The following items were considered in medical decision making: Risks & Benefits: Risks, benefits, and treatment options discussed with patient. Referring MD: Domi Lyles MD Patient Care Team: Domi Lyles MD as PCP - General (Family Medicine) Nita Valle Michael D., MD (Inactive) (Gastroenterology) Emily Parra (Inactive) Analisa Brian MD (Colon and Rectal Surgery) @[id number]@ Electronically Signed By: Ada Monteiro NP (1) Outpatient Encounter Medications as of 01/14/2025 Medication Sig Dispense Refill azaTHIOprine (IMURAN) 50 mg tablet Take 50 mg by mouth in the morning. (Patient not taking: Reported on 01/14/2025) buPROPion XL (WELLBUTRIN XL) 150 mg tablet Take 150 mg by mouth in the morning. busPIRone (BUSPAR) 10 mg tablet Take 10 mg by mouth in the morning and 10 mg before bedtime. dextroamphetamine-amphetamine (Adderall XR) 30 mg Capsule, Sust. Release 24 hr Take 1 Capsule (30 mg) by mouth daily. 90 Capsule 0 No facility-administered encounter medications on file as of 01/14/2025.[facility] [id number] NoteTHE [facility]MERLY [facility] - Colon and Rectal Surgery, [address] [phone] OFFICE VISIT Chief Complaint Patient presents with Follow-up History of Present Illness History of pilonidal cystectomy 03/14/[address] Brian. He did have laser hair removal post op. He developed a recurrent abscess at the site about 6 months ago. At the time, he was not able to always have someone to pack this at home. I follow up, I did re-open the would when closed superficially. He returns today with complaint of recurrent pain and swelling at the site. He went for a walk this morning and had drainage. He also has a history of Crohn's disease. had a baby 2 months ago. Baby was in NICU, mom had to be taken by [facility] to hospital for CHF. Just got out of the hospital a few days ago Baby is now doing well - [place]. Review of Systems Respiratory: Negative. Cardiovascular: Negative. Gastrointestinal: Negative. Genitourinary: Negative. Neurological: Negative. All other systems reviewed and are negative. Allergies Amoxicillin and Pcn (penicillins) Medications Encounter Medications(1) Histories He has a past medical history of Awareness under anesthesia, Blood in the stool, and Crohn disease ([facility]). . He has a past surgical history that includes HX Small intestine surgery (2005, 2009); pr unlisted procedure small intestine (2018); and pr incision & drainage pilonidal cyst simple (03/14/2020). His family history includes Heart Problems in his maternal grandfather and maternal uncle. He reports that he has been smoking cigars. He has never used smokeless tobacco. He reports current alcohol use. He reports that he does not use drugs. The following portions of the patient's history were reviewed and updated as appropriate: allergies, current medications, past family history, past Medical history, past social history, past surgical history, problem list, and review of systems I have independently reviewed and interpreted the most recent imaging studies. Pulse 80, temperature 97.8 F (36.6 C), temperature source Temporal, height 6' 3 (1.905 m), weight 288 lb 9.6 oz (130.9 kg), SpO2 98%. Physical Exam Constitutional: Appearance: Normal appearance. HENT: Head: Normocephalic. Eyes: Conjunctiva/sclera: Conjunctivae normal. Pulmonary: Effort: Pulmonary effort is normal. Genitourinary: Comments: Right of nestor cleft - defect scar with approx. 3 cm depth. No surrounding induration, mild erythema. Musculoskeletal: General: Normal range of motion. Skin: General: Skin is warm and dry. Capillary Refill: Capillary refill takes less than 2 seconds. Neurological: General: No focal deficit present. Mental Status: He is alert and oriented to person, place, and time. Psychiatric: Mood and Affect: Mood normal. Behavior: Behavior normal. Thought Content: Thought content normal. Judgment: Judgment normal. Assessment: ICD-10-CM 1. Pilonidal abscess L05.01 Recurrent abscess, it is well drained. I have irrigated and then packed the site with 1/2 plain packing. His accompanied him today and is willing to change the dressing daily. I have shown her how today. Recommended he use the hand held shower to irrigate the area daily, removed dressing and then his should pack the wound. Plan: Follow up next week for wound check Medical Decision Making: The following items were considered in medical decision making: Risks & Benefits: Risks, benefits, and treatment options discussed with patient. Referring MD: Domi Lyles MD Patient Care Team: Domi Lyles MD as PCP - General (Family Medicine) Nita Valle Michael D., MD (Inactive) (Gastroenterology) Emily Parra (Inactive) Analisa Brian MD (Colon and Rectal Surgery) @[id number]@ Electronically Signed By: Ada Monteiro NP (1) Outpatient Encounter Medications as of 01/07/2025 Medication Sig Dispense Refill buPROPion XL (WELLBUTRIN XL) 150 mg tablet Take 150 mg by mouth in the morning. busPIRone (BUSPAR) 10 mg tablet Take 10 mg by mouth in the morning and 10 mg before bedtime. dextroamphetamine-amphetamine (Adderall XR) 30 mg Capsule, Sust. Release 24 hr Take 1 Capsule (30 mg) by mouth daily. 90 Capsule 0 No facility-administered encounter medications on file as of 01/07/2025.[facility]04-30-2025 NoteAssessment & Plan Attention deficit hyperactivity disorder (ADHD), predominantly inattentive type Meds working well, refills given. UDS and CSA updated. Orders: dextroamphetamine-amphetamine (Adderall XR) 30 mg Capsule, Sust. Release 24 hr; Take 1 Capsule (30 mg) by mouth daily. POCT AMB DRUG SCREEN Crohn's disease with fistula, unspecified gastrointestinal tract location (CMS HCC) Follow-up with GI appropriately. Continue current meds, doing fairly well actually. Class 2 obesity due to excess calories without serious comorbidity with body mass index (BMI) of 36.0 to 36.9 in adult BMI 36.00 kg/m General weight gain/lifestyle modification strategies discussed Immunization due Orders: TDAP VACCINE =>7YO IM Subjective Chief Complaint: ADHD HPI today for follow-up on attention deficit disorder as well as Crohn's disease. Was apparently going to get on a new biologic agent for Crohn's disease but has been laid off and is waiting till he gets back on insurance which I think is very reasonable. ADHD stable with current meds. Does need updated UDS and CSA Objective BP 150/90 Pulse 73 Temp (!) 72 F (22.2 C) (Temporal) Resp 16 Ht 6' 3 (1.905 m) Wt 288 lb (130.6 kg) SpO2 97% BMI 36.00 kg/m Wt Readings from Last 3 Encounters: 11/18/24 288 lb (130.6 kg) 08/20/24 281 lb (127.5 kg) 07/20/24 280 lb (127 kg) BP Readings from Last 3 Encounters: 11/18/24 150/90 06/25/24 123/73 03/04/23 123/73 Physical Exam Vitals and nursing note reviewed. Constitutional: General: He is not in acute distress. Appearance: Normal appearance. He is not ill-appearing, toxic-appearing or diaphoretic. HENT: Head: Normocephalic and atraumatic. Right Ear: External ear normal. Left Ear: External ear normal. Nose: Nose normal. No congestion or rhinorrhea. Mouth/Throat: Mouth: Mucous membranes are moist. Eyes: Pupils: Pupils are equal, round, and reactive to light. Cardiovascular: Rate and Rhythm: Normal rate. Pulses: Normal pulses. Heart sounds: Normal heart sounds. No murmur heard. No friction rub. No gallop. Pulmonary: Effort: Pulmonary effort is normal. No respiratory distress. Breath sounds: Normal breath sounds. No stridor. No wheezing, rhonchi or rales. Chest: Chest wall: No tenderness. Abdominal: General: Abdomen is flat. Bowel sounds are normal. There is no distension. Palpations: Abdomen is soft. There is no mass. Musculoskeletal: General: Normal range of motion. Cervical back: Normal range of motion. Right lower leg: No edema. Left lower leg: No edema. Lymphadenopathy: Cervical: No cervical adenopathy. Skin: General: Skin is warm. Capillary Refill: Capillary refill takes less than 2 seconds. Findings: No rash. Neurological: General: No focal deficit present. Mental Status: He is alert and oriented to person, place, and time. Mental status is at baseline. Cranial Nerves: No cranial nerve deficit. Sensory: No sensory deficit. Motor: No weakness. Coordination: Coordination normal. Gait: Gait normal. Deep Tendon Reflexes: Reflexes normal. Psychiatric: Mood and Affect: Mood normal. Behavior: Behavior normal. Thought Content: Thought content normal. Judgment: Judgment normal.[facility] [id number] NoteTHE FORMERLY [facility] - Colon and Rectal Surgery, [facility] [address] [place] [phone] OFFICE VISIT Chief Complaint Patient presents with Follow-up Pilonidal cyst with abscess History of Present Illness Here for follow up after colonoscopy and MRE I have personally discussed with Dr. Sr. I have also obtained, reviewed and interpreted the colonoscopy report and the MRE. Colonoscopy shows narrowing and inflammation in the terminal ileum but normal mucosa throughout the whole colon. Biopsies of the terminal ileum were done and show benign ileocecal mucosa with patchy mixed inflammation and erosions, no dysplasia or malignancy, consistent with Crohn's disease. Random colon biopsies were negative MRE was also done and shows No evidence of abscess. No focal inflammatory inflammatory edema associated with bowel. There are findings consistent with sequelae of inflammatory bowel disease with abnormal bandlike tethering identified in the right lower abdomen. There is associated fistula formation between adjacent bowel loops in this location which includes the terminal ileum. Involved small bowel also demonstrates mucosal hyperenhancement and multifocal luminal narrowing suggesting stricturing. This is consistent with fibrous stenotic change. The appendix is also involved with fibrotic changes in the right lower quadrant. These findings are progressed compared to MR arthrography from 11/18/2020. No upstream bowel dilation present to suggest obstruction. I have personally reviewed these images, and see no convincing evidence of an ileosigmoid fistula on this study Currently the patient feels well. He denies symptoms of obstruction, but does say that certain foods we will give him more frequent stools. Also denies fevers, bloody stools, nausea or vomiting. Has 1 or 2 bowel movements per day Has been prescribed Stelara but has not taken it for almost 1 year No prior abdominal operations No cardiac history or symptoms Does not use tobacco Otherwise very healthy Review of Systems Constitutional: Negative. HENT: Negative. Eyes: Negative. Respiratory: Negative. Cardiovascular: Negative. Gastrointestinal: Negative. Allergic/Immunologic: Negative. Neurological: Negative. Allergies Amoxicillin and Pcn (penicillins) Medications Outpatient Encounter Medications as of 08/20/2024 Medication Sig Dispense Refill buPROPion XL (WELLBUTRIN XL) 150 mg tablet Take 150 mg by mouth daily. busPIRone (BUSPAR) 10 mg tablet Take 10 mg by mouth 2 times daily. dextroamphetamine-amphetamine (Adderall XR) 30 mg Capsule, Sust. Release 24 hr Take 1 Capsule (30 mg) by mouth daily. 30 Capsule 0 (DISCONTINUED) dextroamphetamine-amphetamine (Adderall XR) 30 mg Capsule, Sust. Release 24 hr Take 1 Capsule (30 mg) by mouth daily. 30 Capsule 0 dextroamphetamine-amphetamine (AdderalL) 30 mg Tablet Take 30 mg by mouth daily. (Patient not taking: Reported on 07/09/2024) DOXYCYCLINE HYCLATE PO Take by mouth. (Patient not taking: Reported on 08/20/2024) ferrous sulfate 325 mg (65 mg iron) EC tablet Take by mouth as needed. (Patient not taking: Reported on 08/20/2024) predniSONE (DELTASONE) 10 mg tablet Take this medication for 10 days. Take 5 tablets daily for 2 days Take 4 tablets daily for 2 days Take 3 tablets daily for 2 days Take 2 tablets daily for 2 days Take 1 tablets daily for 2 days Then stop. (Patient not taking: Reported on 08/20/2024) 30 Tablet 0 predniSONE (DELTASONE) 10 mg tablet 4 tab po qd x 3d, 3 tabs po qd x 3d, 2 tabs po qd x 3d, 1 tab po qd x 3d (Patient not taking: Reported on 08/20/2024) 30 Tablet 0 Saccharomyces boulardii (FLORASTOR) 250 mg Capsule Take 250 mg by mouth 2 times daily. (Patient not taking: Reported on 08/20/2024) Ustekinumab (STELARA) 90 mg/mL Syringe 90 mg by Subcutaneous route once for 1 dose. (Patient not taking: Reported on 08/20/2024) 1 mL 0 venlafaxine (EFFEXOR-XR) 37.5 mg Capsule, Sust. Release 24 hr TAKE 1 CAPSULE BY MOUTH DAILY FOR 1 WEEK THEN INCREASE TO 2 CAPSULES BY MOUTH DAILY (Patient not taking: Reported on 07/02/2024) No facility-administered encounter medications on file as of 08/20/2024. Histories He has a past medical history of Awareness under anesthesia, Blood in the stool, and Crohn disease ([facility]). . He has a past surgical history that includes HX Small intestine surgery (2005, 2009); pr unlisted procedure small intestine (2018); and pr incision & drainage pilonidal cyst simple (03/14/2020). His family history includes Heart Problems in his maternal grandfather and maternal uncle. He reports that he has been smoking cigars. He has never used smokeless tobacco. He reports current alcohol use. He reports that he does not use drugs. The following portions of the patient's history were reviewed and updated as appr (more content not included)...[facility] [id number] NoteKidneys back down/back to normal as expectedThe [facility] [id number] NoteTHE FORMERLY [facility] - Colon and Rectal Surgery, [address] [phone] OFFICE VISIT Chief Complaint Patient presents with Follow-up History of Present Illness Follow up wound check Continued to pack - was only able to get packing in for the next 2 days after last visit. Has not packed since . Review of Systems Respiratory: Negative. Cardiovascular: Negative. Gastrointestinal: Negative. Genitourinary: Negative. Neurological: Negative. All other systems reviewed and are negative. Allergies Amoxicillin and Pcn (penicillins) Drug Allergies: Medications Outpatient Encounter Medications as of 07/20/2024 Medication Sig Dispense Refill buPROPion XL (WELLBUTRIN XL) 150 mg tablet Take 150 mg by mouth daily. busPIRone (BUSPAR) 10 mg tablet Take 10 mg by mouth 2 times daily. dextroamphetamine-amphetamine (Adderall XR) 30 mg Capsule, Sust. Release 24 hr Take 1 Capsule (30 mg) by mouth daily. 30 Capsule 0 dextroamphetamine-amphetamine (AdderalL) 30 mg Tablet Take 30 mg by mouth daily. (Patient not taking: Reported on 07/09/2024) DOXYCYCLINE HYCLATE PO Take by mouth. (Patient not taking: Reported on 07/13/2024) ferrous sulfate 325 mg (65 mg iron) EC tablet Take by mouth as needed. (Patient not taking: Reported on 06/25/2024) predniSONE (DELTASONE) 10 mg tablet Take this medication for 10 days. Take 5 tablets daily for 2 days Take 4 tablets daily for 2 days Take 3 tablets daily for 2 days Take 2 tablets daily for 2 days Take 1 tablets daily for 2 days Then stop. (Patient not taking: Reported on 06/25/2024) 30 Tablet 0 predniSONE (DELTASONE) 10 mg tablet 4 tab po qd x 3d, 3 tabs po qd x 3d, 2 tabs po qd x 3d, 1 tab po qd x 3d (Patient not taking: Reported on 06/25/2024) 30 Tablet 0 Saccharomyces boulardii (FLORASTOR) 250 mg Capsule Take 250 mg by mouth 2 times daily. Ustekinumab (STELARA) 90 mg/mL Syringe 90 mg by Subcutaneous route once for 1 dose. (Patient not taking: Reported on 06/25/2024) 1 mL 0 venlafaxine (EFFEXOR-XR) 37.5 mg Capsule, Sust. Release 24 hr TAKE 1 CAPSULE BY MOUTH DAILY FOR 1 WEEK THEN INCREASE TO 2 CAPSULES BY MOUTH DAILY (Patient not taking: Reported on 07/09/2024) No facility-administered encounter medications on file as of 07/20/2024. Histories He has a past medical history of Awareness under anesthesia, Blood in the stool, and Crohn disease ([facility]). . He has a past surgical history that includes HX Small intestine surgery (2005, 2009); pr unlisted procedure small intestine (2018); and pr incision & drainage pilonidal cyst simple (03/14/2020). His family history includes Heart Problems in his maternal grandfather and maternal uncle. He reports that he has been smoking cigars. He has never used smokeless tobacco. He reports current alcohol use. He reports that he does not use drugs. The following portions of the patient's history were reviewed and updated as appropriate: allergies, current medications, past family history, past Medical history, past social history, past surgical history, problem list, and review of systems I have independently reviewed and interpreted the most recent imaging studies. Weight 280 lb (127 kg). Physical Exam Constitutional: Appearance: Normal appearance. HENT: Head: Normocephalic. Nose: Nose normal. Eyes: Conjunctiva/sclera: Conjunctivae normal. Pulmonary: Effort: Pulmonary effort is normal. Genitourinary: Comments: Top of nestor cleft: healed. Musculoskeletal: General: Normal range of motion. Cervical back: Normal range of motion. Skin: General: Skin is warm and dry. Capillary Refill: Capillary refill takes less than 2 seconds. Neurological: General: No focal deficit present. Mental Status: He is alert and oriented to person, place, and time. Psychiatric: Mood and Affect: Mood normal. Behavior: Behavior normal. Thought Content: Thought content normal. Judgment: Judgment normal. Assessment: ICD-10-CM 1. Pilonidal cyst with abscess L05.01 Wound is healed. Call with concerns. Plan: Once he has enterography and colonoscopy completed, follow up with Dr. Brian Medical Decision Making: The following items were considered in medical decision making: Risks & Benefits: Risks, benefits, and treatment options discussed with patient. This document was dictated using Pythian Direct voice recognition software. While every effort is made to proofread the document as it is being created, please excuse any linker up errors encountered in reading. Referring MD: No ref. provider found Patient Care Team: Domi Lyles MD as PCP - General (Family Medicine) Nita Valle Michael D., MD (Inactive) (Gastroenterology) Emily Parra (Inactive) Analisa Brian MD (Colon and Rectal Surgery) @[email or web address] (more content not included)...[facility] 07-13-2024 NoteTHE [facility] Surgery, [address] [phone] OFFICE VISIT Chief Complaint Patient presents with Follow-up Pilonidal cyst History of Present Illness His has been able to pack wound each day Review of Systems HENT: Negative. Respiratory: Negative. Gastrointestinal: Negative. Genitourinary: Negative. Allergic/Immunologic: Negative. Neurological: Negative. Allergies Amoxicillin and Pcn (penicillins) Drug Allergies: Medications Outpatient Encounter Medications as of 07/13/2024 Medication Sig Dispense Refill buPROPion XL (WELLBUTRIN XL) 150 mg tablet Take 150 mg by mouth daily. busPIRone (BUSPAR) 10 mg tablet Take 10 mg by mouth 2 times daily. dextroamphetamine-amphetamine (Adderall XR) 30 mg Capsule, Sust. Release 24 hr Take 1 Capsule (30 mg) by mouth daily. 30 Capsule 0 dextroamphetamine-amphetamine (AdderalL) 30 mg Tablet Take 30 mg by mouth daily. (Patient not taking: Reported on 07/09/2024) DOXYCYCLINE HYCLATE PO Take by mouth. ferrous sulfate 325 mg (65 mg iron) EC tablet Take by mouth as needed. (Patient not taking: Reported on 06/25/2024) predniSONE (DELTASONE) 10 mg tablet Take this medication for 10 days. Take 5 tablets daily for 2 days Take 4 tablets daily for 2 days Take 3 tablets daily for 2 days Take 2 tablets daily for 2 days Take 1 tablets daily for 2 days Then stop. (Patient not taking: Reported on 06/25/2024) 30 Tablet 0 predniSONE (DELTASONE) 10 mg tablet 4 tab po qd x 3d, 3 tabs po qd x 3d, 2 tabs po qd x 3d, 1 tab po qd x 3d (Patient not taking: Reported on 06/25/2024) 30 Tablet 0 Saccharomyces boulardii (FLORASTOR) 250 mg Capsule Take 250 mg by mouth 2 times daily. Ustekinumab (STELARA) 90 mg/mL Syringe 90 mg by Subcutaneous route once for 1 dose. (Patient not taking: Reported on 06/25/2024) 1 mL 0 venlafaxine (EFFEXOR-XR) 37.5 mg Capsule, Sust. Release 24 hr TAKE 1 CAPSULE BY MOUTH DAILY FOR 1 WEEK THEN INCREASE TO 2 CAPSULES BY MOUTH DAILY (Patient not taking: Reported on 07/09/2024) No facility-administered encounter medications on file as of 07/13/2024. Histories He has a past medical history of Awareness under anesthesia, Blood in the stool, and Crohn disease ([facility]). . He has a past surgical history that includes HX Small intestine surgery (2005, 2009); pr unlisted procedure small intestine (2018); and pr incision & drainage pilonidal cyst simple (03/14/2020). His family history includes Heart Problems in his maternal grandfather and maternal uncle. He reports that he has been smoking cigars. He has never used smokeless tobacco. He reports current alcohol use. He reports that he does not use drugs. The following portions of the patient's history were reviewed and updated as appropriate: allergies, current medications, past family history, past Medical history, past social history, past surgical history, problem list, and review of systems I have independently reviewed and interpreted the most recent imaging studies. Pulse (!) 103, weight 276 lb (125.2 kg), SpO2 97%. Physical Exam Constitutional: Appearance: Normal appearance. HENT: Head: Normocephalic. Pulmonary: Effort: Pulmonary effort is normal. Genitourinary: Comments: Top of cleft: small defect with 1 cm depth. No surrounding erythema or induration Musculoskeletal: General: Normal range of motion. Skin: General: Skin is warm and dry. Capillary Refill: Capillary refill takes less than 2 seconds. Neurological: General: No focal deficit present. Mental Status: He is alert and oriented to person, place, and time. Psychiatric: Mood and Affect: Mood normal. Behavior: Behavior normal. Thought Content: Thought content normal. Judgment: Judgment normal. Assessment: ICD-10-CM 1. Pilonidal cyst with abscess L05.01 Wound looks great and has been healing in well. Cleaned and re-packed today with 1/4 plain packing Call with any concerns Plan: Follow up in 7-10 days. Medical Decision Making: The following items were considered in medical decision making: Risks & Benefits: Risks, benefits, and treatment options discussed with patient. Referring MD: No ref. provider found Patient Care Team: Domi Lyles MD as PCP - General (Family Medicine) Nita Valle Michael D., MD (Inactive) (Gastroenterology) Emily Parra (Inactive) Analisa Brian MD (Colon and Rectal Surgery) @[email or web address] Electronically Signed By: Ada Monteiro NP[facility]12-19-2024 NoteTHE [facility] Physicians - Colon and Rectal Surgery, [address] [phone] OFFICE VISIT Chief Complaint Patient presents with Follow-up History of Present Illness Follow up pilonidal cyst has been packing, but yesterday was more painful so they did not pack Review of Systems Respiratory: Negative. Cardiovascular: Negative. Gastrointestinal: Positive for diarrhea. Allergic/Immunologic: Negative. Neurological: Negative. Allergies Amoxicillin and Pcn (penicillins) Medications Outpatient Encounter Medications as of 07/09/2024 Medication Sig Dispense Refill buPROPion XL (WELLBUTRIN XL) 150 mg tablet Take 150 mg by mouth daily. busPIRone (BUSPAR) 10 mg tablet Take 10 mg by mouth 2 times daily. dextroamphetamine-amphetamine (Adderall XR) 30 mg Capsule, Sust. Release 24 hr Take 1 Capsule (30 mg) by mouth daily. 30 Capsule 0 dextroamphetamine-amphetamine (AdderalL) 30 mg Tablet Take 30 mg by mouth daily. (Patient not taking: Reported on 07/02/2024) DOXYCYCLINE HYCLATE PO Take by mouth. (Patient not taking: Reported on 07/02/2024) ferrous sulfate 325 mg (65 mg iron) EC tablet Take by mouth as needed. (Patient not taking: Reported on 07/02/2024) predniSONE (DELTASONE) 10 mg tablet Take this medication for 10 days. Take 5 tablets daily for 2 days Take 4 tablets daily for 2 days Take 3 tablets daily for 2 days Take 2 tablets daily for 2 days Take 1 tablets daily for 2 days Then stop. (Patient not taking: Reported on 07/02/2024) 30 Tablet 0 predniSONE (DELTASONE) 10 mg tablet 4 tab po qd x 3d, 3 tabs po qd x 3d, 2 tabs po qd x 3d, 1 tab po qd x 3d (Patient not taking: Reported on 07/02/2024) 30 Tablet 0 Saccharomyces boulardii (FLORASTOR) 250 mg Capsule Take 250 mg by mouth 2 times daily. Ustekinumab (STELARA) 90 mg/mL Syringe 90 mg by Subcutaneous route once for 1 dose. (Patient not taking: Reported on 07/02/2024) 1 mL 0 venlafaxine (EFFEXOR-XR) 37.5 mg Capsule, Sust. Release 24 hr TAKE 1 CAPSULE BY MOUTH DAILY FOR 1 WEEK THEN INCREASE TO 2 CAPSULES BY MOUTH DAILY (Patient not taking: Reported on 07/02/2024) No facility-administered encounter medications on file as of 07/09/2024. Histories He has a past medical history of Awareness under anesthesia, Blood in the stool, and Crohn disease ([facility]). . He has a past surgical history that includes HX Small intestine surgery (2006, 2010); pr unlisted procedure small intestine (2019); and pr incision & drainage pilonidal cyst simple (03/14/2020). His family history includes Heart Problems in his maternal grandfather and maternal uncle. He reports that he has been smoking cigars. He has never used smokeless tobacco. He reports current alcohol use. He reports that he does not use drugs. The following portions of the patient's history were reviewed and updated as appropriate: allergies, current medications, past family history, past Medical history, past social history, past surgical history, problem list, and review of systems I have independently reviewed and interpreted the most recent imaging studies. Pulse (!) 112, temperature 99.3 F (37.4 C), weight 279 lb (126.6 kg), SpO2 97%. Physical Exam Constitutional: Appearance: Normal appearance. HENT: Head: Normocephalic. Eyes: Conjunctiva/sclera: Conjunctivae normal. Pulmonary: Effort: Pulmonary effort is normal. Genitourinary: Comments: Top of gluteal cleft: small defect, superficially closed over. Able to easily open, 2 cm depth No surrounding erythema or induration. Musculoskeletal: General: Normal range of motion. Cervical back: Normal range of motion. Skin: General: Skin is warm and dry. Capillary Refill: Capillary refill takes less than 2 seconds. Neurological: General: No focal deficit present. Mental Status: He is alert and oriented to person, place, and time. Psychiatric: Mood and Affect: Mood normal. Behavior: Behavior normal. Thought Content: Thought content normal. Judgment: Judgment normal. Assessment: ICD-10-CM 1. Pilonidal cyst with abscess L05.01 2. Crohn's disease with fistula, unspecified gastrointestinal tract location ([facility]) K50.913 Opening had superficially closed over, I was able to easily open this 2 cm depth remaining. Good improvement since last visit. Reviewed importance of continuing to pack daily Plan: Follow up next week for wound check Medical Decision Making: The following items were considered in medical decision making: Risks & Benefits: Risks, benefits, and treatment options discussed with patient. This document was dictated using Py[employer]ian Direct voice recognition software. While every effort is made to proofread the document as it is being created, please excuse any linker up errors encountered in reading. Referring MD: Analisa Brian (more content not included)...[facility] [id number] NoteKidneys were still a bit irritated but nothing major, urine was negative, lets rpt kidneys again in 4-6wkThe [facility] [id number] NoteTHE [facility] Phys[facility] - Colon and Rectal Surgery, [place] [address] [place] [phone] OFFICE VISIT Chief Complaint Patient presents with Follow-up Pilonidal abscess, incised and drained 06/25/[address] Brian History of Present Illness Feeling much better. His was packing, not able to get anything in in a few days. Able to sleep on his back for the first time in awhile. He has appointment for colonoscopy Dr. Galdamez next week. MRE Aug 18 Review of Systems All other systems reviewed and are negative. Allergies Amoxicillin and Pcn (penicillins) Medications Outpatient Encounter Medications as of 07/02/2024 Medication Sig Dispense Refill buPROPion XL (WELLBUTRIN XL) 150 mg tablet Take 150 mg by mouth daily. busPIRone (BUSPAR) 10 mg tablet Take 10 mg by mouth 2 times daily. dextroamphetamine-amphetamine (Adderall XR) 30 mg Capsule, Sust. Release 24 hr Take 1 Capsule (30 mg) by mouth daily. 30 Capsule 0 dextroamphetamine-amphetamine (AdderalL) 30 mg Tablet Take 30 mg by mouth daily. DOXYCYCLINE HYCLATE PO Take by mouth. ferrous sulfate 325 mg (65 mg iron) EC tablet Take by mouth as needed. (Patient not taking: Reported on 06/25/2024) () oxyCODONE 5 mg PO immediate release tablet Take 1 Tablet (5 mg) by mouth every 4 hours as needed for Pain for up to 15 doses. 20 Tablet 0 predniSONE (DELTASONE) 10 mg tablet Take this medication for 10 days. Take 5 tablets daily for 2 days Take 4 tablets daily for 2 days Take 3 tablets daily for 2 days Take 2 tablets daily for 2 days Take 1 tablets daily for 2 days Then stop. (Patient not taking: Reported on 06/25/2024) 30 Tablet 0 predniSONE (DELTASONE) 10 mg tablet 4 tab po qd x 3d, 3 tabs po qd x 3d, 2 tabs po qd x 3d, 1 tab po qd x 3d (Patient not taking: Reported on 06/25/2024) 30 Tablet 0 Saccharomyces boulardii (FLORASTOR) 250 mg Capsule Take 250 mg by mouth 2 times daily. Ustekinumab (STELARA) 90 mg/mL Syringe 90 mg by Subcutaneous route once for 1 dose. (Patient not taking: Reported on 06/25/2024) 1 mL 0 No facility-administered encounter medications on file as of 07/02/2024. Histories He has a past medical history of Awareness under anesthesia, Blood in the stool, and Crohn disease ([facility]). . He has a past surgical history that includes HX Small intestine surgery (2005, 2009) and pr unlisted procedure small intestine (2018). His family history includes Heart Problems in his maternal grandfather and maternal uncle. He reports that he has been smoking cigars. He has never used smokeless tobacco. He reports current alcohol use. He reports that he does not use drugs. The following portions of the patient's history were reviewed and updated as appropriate: allergies, current medications, past family history, past Medical history, past social history, past surgical history, problem list, and review of systems I have independently reviewed and interpreted the most recent imaging studies. There were no vitals taken for this visit. Physical Exam Constitutional: Appearance: Normal appearance. HENT: Head: Normocephalic. Eyes: Conjunctiva/sclera: Conjunctivae normal. Pulmonary: Effort: Pulmonary effort is normal. Abdominal: Palpations: Abdomen is soft. Genitourinary: Comments: Nestor cleft: defect with surrounding hypergranulation. Underlying defect with approx 4 cm depth and 3-4 cm inferior undermining. No surrounding erythema or induration. Serosanginous drainage. Musculoskeletal: General: Normal range of motion. Cervical back: Normal range of motion. Skin: General: Skin is warm and dry. Capillary Refill: Capillary refill takes less than 2 seconds. Neurological: General: No focal deficit present. Mental Status: He is alert and oriented to person, place, and time. Psychiatric: Mood and Affect: Mood normal. Behavior: Behavior normal. Thought Content: Thought content normal. Judgment: Judgment normal. Assessment: ICD-10-CM 1. Pilonidal cyst with abscess L05.01 2. Crohn's disease with fistula, unspecified gastrointestinal tract location ([facility]) K50.913 Pilonidal abscess site does still have underlying cavity and patent overlying defect. I have cleansed this today and filled wound space with approx. 6 cm of 1/4 plain packing. I have explained with pictures for him to explain to his as she is not here today. Change daily Plan: Follow up next week with me for wound check. Encourage him to bring his . I checked with Dr. Brian - she would like all recommended testing completed prior to her next visit - will have staff reschedule to accommodate testing. Medical Decision Making: The following items were considered in medical decision making: Discussion of care with business objects consultant Reviewed outside records Risks & Benefits: Risks, benefits (more content not included)...[facility] [id number] Note This encounter was created in error - please disregard.[facility] 06-25-2024 NoteTHE [facility] Physicians - Colon and Rectal Surgery, [address] [phone] OFFICE VISIT Chief Complaint Patient presents with New Patient Consult Last seen 2019-Anal Fistula History of Present Illness I have not seen this patient since 2019, when I did a pilonidal cystectomy. He is referred back by Dr. Lopez He also has terminal ileal Crohn's disease, but has not been on treatment since August. He was on Humira He was recently visiting family in [facility] ([place] and while there developed pressure and pain at his old pilonidal cyst site. He visited an emergency room where a CT scan was done. The pilonidal abscess was aspirated with a needle and he was put on oral antibiotics. 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 Lopez No prior abdominal operations No cardiac history or symptoms Does not use tobacco Otherwise very healthy Review of Systems Respiratory: Negative. Cardiovascular: Negative. Gastrointestinal: Negative. Genitourinary: Negative. Neurological: Negative. All other systems reviewed and are negative. Allergies Amoxicillin and Pcn (penicillins) Medications Outpatient Encounter Medications as of 06/25/2024 Medication Sig Dispense Refill buPROPion XL (WELLBUTRIN XL) 150 mg tablet Take 150 mg by mouth daily. busPIRone (BUSPAR) 10 mg tablet Take 10 mg by mouth 2 times daily. dextroamphetamine-amphetamine (Adderall XR) 30 mg Capsule, Sust. Release 24 hr Take 1 Capsule (30 mg) by mouth daily. 30 Capsule 0 dextroamphetamine-amphetamine (AdderalL) 30 mg Tablet Take 30 mg by mouth daily. DOXYCYCLINE HYCLATE PO Take by mouth. ferrous sulfate 325 mg (65 mg iron) EC tablet Take by mouth as needed. (Patient not taking: Reported on 06/25/2024) oxyCODONE 5 mg PO immediate release tablet Take 1 Tablet (5 mg) by mouth every 4 hours as needed for Pain for up to 15 doses. 20 Tablet 0 predniSONE (DELTASONE) 10 mg tablet Take this medication for 10 days. Take 5 tablets daily for 2 days Take 4 tablets daily for 2 days Take 3 tablets daily for 2 days Take 2 tablets daily for 2 days Take 1 tablets daily for 2 days Then stop. (Patient not taking: Reported on 06/25/2024) 30 Tablet 0 predniSONE (DELTASONE) 10 mg tablet 4 tab po qd x 3d, 3 tabs po qd x 3d, 2 tabs po qd x 3d, 1 tab po qd x 3d (Patient not taking: Reported on 06/25/2024) 30 Tablet 0 Saccharomyces boulardii (FLORASTOR) 250 mg Capsule Take 250 mg by mouth 2 times daily. Ustekinumab (STELARA) 90 mg/mL Syringe 90 mg by Subcutaneous route once for 1 dose. (Patient not taking: Reported on 06/25/2024) 1 mL 0 No facility-administered encounter medications on file as of 06/25/2024. Histories He has a past medical history of Awareness under anesthesia, Blood in the stool, and Crohn disease ([facility]). . He has a past surgical history that includes HX Small intestine surgery (2006, 2010) and pr unlisted procedure small intestine (2019). His family history includes Heart Problems in his maternal grandfather and maternal uncle. He reports that he has been smoking cigars. He has never used smokeless tobacco. He reports current alcohol use. He reports that he does not use drugs. The following portions of the patient's history were reviewed and updated as appropriate: allergies, current medications, past family history, past Medical history, past social history, past surgical history, problem list, and review of systems I have independently reviewed and interpreted the most recent imaging studies. Blood pressure 123/73, pulse 68, temperature 98 F (36.7 C), temperature source Temporal, height 6' 3 (1.905 m), weight 261 lb (118.4 kg), SpO2 98%. Physical Exam Vitals and nursing note reviewed. Exam conducted with a applied psychology professor present. Constitutional: General: He is not in acute distress. Appearance: Normal appearance. He is not ill-appearing, toxic-appearing or diaphoretic. HENT: Head: Normocephalic. Eyes: Extraocular Movements: Extraocular movements intact. Pupils: Pupils are equal, round, and reactive to light. Pulmonary: Effort: Pulmonary effort is normal. No respiratory distress. Breath sounds: No stridor. Abdominal: General: Abdomen is flat. There is no distension. Palpations: Abdomen is soft. There is no mass. Tenderness: There is no abdominal tenderness. There is no guarding or rebound. Hernia: No he (more content not included)...[facility] note* Diagnosis Urinary tract infection without hematuria, site unspecified documented in this encounter [facility] note* Diagnosis Crohn's disease with fistula, unspecified gastrointestinal tract location ([facility]) Crohn's disease with fistula, unspecified gastrointestinal tract location ([facility]) documented in this encounter [facility] note* Diagnosis Crohn's disease with fistula, unspecified gastrointestinal tract location ([facility]) documented in this encounter [facility] note* Diagnosis Crohn's disease with complication, unspecified gastrointestinal tract location ([facility]) documented in this encounter [facility] note* Diagnosis Crohn's disease with fistula, unspecified gastrointestinal tract location ([facility]) documented in this encounter [facility] visit Narrative* Radiology Services (Routine) - AuthorizedSpecialtyDiagnoses / ProceduresReferred By ContactReferred To Contact Diagnoses Crohn's disease with fistula, unspecified gastrointestinal tract location ([facility]) Procedures MRI-PELVIS W/WO CONTRAST Analisa Brian MD [address] [place] [address] [address] - [place] [address] Phone: tel: fax: [address] [phone] Phone: tel: Referral IDStatusReasonStart DateExpiration DateVisits RequestedVisits [id number]/18/20257/ [facility] for visit Narrative* Radiology Services (Routine) - AuthorizedSpecialtyDiagnoses / ProceduresReferred By ContactReferred To Contact Diagnoses Crohn's disease with fistula, unspecified gastrointestinal tract location ([facility]) Procedures MRI-ABDOMEN W/WO CONTRAST Analisa Brian MD [address] [place] [address] [address] - [place] [address] Phone: tel: fax: [address] [phone] Phone: tel: Referral IDStatusReasonStart DateExpiration DateVisits RequestedVisits [id number]/ [facility] Advance Directives No Advanced Directives Records Found Date ActivatedDate InactivatedComments07/25/2018 12:42 AM03/14/2020 10:24 AMDate ActivatedDate InactivatedComments07/25/2018 12:42 AM03/14/2020 10:24 AM Summary Purpose Family History No Family History Records Found Additional Source Comments Care Teams (unrecognized sec tion and content) Team MemberRelationshipSpecialtyStart DateEnd Date Domi Lyles MD [address] [facility] [place] [address] PCP - GeneralFamily Medicine09/17/16 Nita Valle 10/25/20 Aemya Lipscomb MD [address] [place] [address] [address] [place] [address] Gastroenterology11/16/20 iAda Emily 11/16/20 Analisa Brian MD [address] [place] [address] 524 [place] [phone] Colon and Rectal Surgery07/29/22Team MemberRelationshipSpecialtyStart DateEnd Date Domi Lyles MD [address] [place] [address] PCP - [facility] Medicine09/17/16 Nita Valle 10/25/20 Ameya Lipscomb MD [address] [place] [address] [address] [place] [address] Gastroenterology11/16/20 Emily Parra 11/16/20 Analisa Brian MD [address] [place] [address] 524 [place] [phone] Colon and Rectal Surgery07/29/22Team MemberRelationshipSpecialtyStart DateEnd Date Domi Lyles MD [address] [place] [address] PCP - Generalmily Medicine09/17/16 Nita Valle 10/25/20 Ameya Lipscomb MD [address] [facility] [address] [place] [address] Gastroenterology11/16/20 Aida Emily 11/16/20 Analisa Brian MD [address] [place] [address] [address] [place] [phone] Colon and Rectal Surgery07/29/22Team MemberRelationshipSpecialtyStart DateEnd Date Domi Lyles MD [address] [facility] [place] [address] [facility] - [facility]16 Nita Valle 10/25/20 Ameya Lipscomb MD [address] [facility] [address] [place] [address] Gastroenterology11/16/20 Aida [place] 11/16/20 Analisa Brian MD [address] [place] [address] 524 [place] [phone] Colon and Rectal Surgery07/29/22 (unrecognized sect ion and content) No Status Records Found INFORMATION SOURCE (unrecogn ized section and content) DATE CREATED AUTHOR 02/07/2025 [facility] FOR RECORDS PERTAINING TO PATIENTS WHO ARE OR HAVE BEEN ENROLLED IN A CHEMICAL DEPENDENCY/SUBSTANCEABUSE PROGRAM, SOME INFORMATION MAY BE OMITTED. This clinical summary was aggregated from multiple sources. Caution should be exercised in using it in the provision of clinical care. This summary normalizes information from multiple sources, and as a consequence, information in this document may materially change the coding, format and clinical context of patient data. In addition, data may be omitted in some cases. CLINICAL DECISIONS SHOULD BE BASED ON THE PRIMARY CLINICAL RECORDS. [facility] [facility]. provides no warranty or guarantee of the accuracy or completeness of information in this document.
== END 2025-07-20 10:48 | disposition home or self-care (01) ==
PROVIDERS: Emergency Provider Emergency Medicine
DX: M79.671 Pain in right foot (principal)
CPT/HCPCS: 73630; 99283